=== PATIENT | female | born 1990 | race African-American/Black ===

== ENCOUNTER 2017-02-15 10:18 | Emergency (ER) | payer SELFPAY ==
[2017-02-15 10:23] VITALS: BP 162/97; BMI 31.9
--- NOTE | 2017-02-15 11:00 | DR.GENAD ---
HPI - PCP Primary Care Physician: ingrid - Complaint/Symptoms Chief Complaint Doctors Comments: Patient reports that she has reoccuring frontal headaches for years. Made worse with noise and light better with quiet. Throbbing frontal headach. Admits to headache since a child. She has tried otc medications and headache continues. Family of similar headache, grandmother. Chief Complaint:: patient stated she has had a headache for 3 to 4 days but today its worse. - Source History Provided: Patient - Mode of Arrival Mode of Arrival: Ambulatory - Timing Onset of Chief Complaint: 02/11/17 PMH - PMH Past Medical History: Yes Past Medical History: Migraines, Headaches, Hypertension Past Surgical History: Yes Surgical History: - Family History History of Family Medical Conditions: No Family Medical History: Hypertension - Social History Does patient currently use any type of tobacco product: No Have you used tobacco products in the last 12 months: No Type of Tobacco Use: None Does any household member use tobacco: No Alcohol Use: None Do you use any recreational Drugs:: No Lives With: Family Lives Where: Home - infectious screening In the last 2 months have you had wt loss of >10#?: NO Have you had fever, night sweats or hemotysis?: No Have you traveled outside the country in the last 6 months?: No Isolation: Standard ROS - Review of Systems Constitutional: No Symptoms Reported Eyes: No Symptoms Reported ENTM: No Symptoms Reported Respiratoy: No Symptoms Reported Cardiovascular: No Symptoms Reported Gastrointestinal/Abdominal: No Symptoms Reported Genitourinary: No Symptoms Reported Neurological: No Symptoms Reported Musculoskeletal: No Symptoms Reported Integumentary: No Symptoms Reported Hematologic/Lymphatic: No Symptoms Reported Endocrine: No Symptoms Reported All Other Systems: Reviewed and Negative PE - Vital Signs Vitals: Temperature 98.7 F Pulse Rate 80 Respiratory Rate 16 Blood Pressure [Right Arm] 146/78 Blood Pressure [Left Arm] 103/59 Blood Pressure 162/97 O2 Sat by Pulse Oximetry 100 - General Limitations: No Limitations General Appearance: Alert, In No Apparent Distress - Head Head Exam: Normal Inspection, Atraumatic - Eyes Eye exam: Normal Appearance, PERRL, EOMI - ENT ENT Exam: Normal Exam External Ear Exam: Normal External Inspection TM/Canal Exam: Bilateral Normal Nose Exam: Normal Nose Exam Mouth Exam: Normal Inspection Throat Exam: Normal Inspection - Neck Neck Exam: Normal Inspection - Chest Chest Inspection: Normal Inspection - Respiratory Respiratory Exam: Normal Lung Sounds Bilat Respiratory Exam: Bilateral Clear to Auscultation - Cardiovascular Cardiovascular Exam: Regular Rate - Abdominal Exam Abdominal Exam: Normal Inspection Abdominal Tenderness: negative: RUQ, RLQ, LUQ, LLQ, Epigastrium, Suprapubic, Diffuse, Mild, Moderate, Severe, Other - Extremities Extremities Exam: Normal Inspection, Full ROM - Back Back Exam: Normal Inspection, Full ROM - Neurologic Neurological Exam: Alert, Oriented X3, CN II-XII Intact - Skin Skin Exam: Warm, Dry, Intact MDM - Differential Diagnosis Differential Diagnosis: Tension headache, headache Course - Reevaluation 1st: Improved - Diagnosis Discharge Problem: Migraine headache Qualifiers: Migraine type: without aura Status migrainosus presence: without status migrainosus Intractability: not intractable Qualified Code(s): G43.009 - Migraine without aura, not intractable, without status migrainosus - Discharge Plan Condition: Stable - Follow ups/Referrals Follow ups/Referrals: Clayton ZHANG [Primary Care Provider] - 3 days - Instructions
[2017-02-15] MEDS ORDERED: IMITREX INJ SC ONE ×2 (11:03→11:05)
== END 2017-02-15 11:37 | disposition home or self-care (01) ==
LOC: ER 10:18
DX: G43.009 Migraine without aura, not intractable, without status migrainosus (principal)
CPT/HCPCS: 96372; 99282; J3030

== ENCOUNTER → 2017-02-24 | Outpatient (CLI) | payer SELFPAY ==
[2017-02-15 10:23] VITALS: BP 162/97
== END ==
LOC: LAB 07:57
PROVIDERS: ATTEND Internal Medicine
DX: Z79.01 Long term (current) use of anticoagulants (principal)
CPT/HCPCS: 36415; 85610

== ENCOUNTER 2017-03-02 10:01 | Inpatient (IN) | payer SELFPAY ==
[2017-03-02 10:21] VITALS: BMI 32.9
--- NOTE | 2017-03-02 10:25 | DR.GENAD ---
HPI - PCP Primary Care Physician: ingrid - Complaint/Symptoms Chief Complaint Doctors Comments: Patient with a history of DVT on coumadin; awaken this AM with dyspnea and pain in right thigh. Chief Complaint:: patient stated she woke up this morning short of breath. her right upper thigh is swelling and painfull. patient stated she last summner she had blood clot in her right arm - Source History Provided: Patient - Mode of Arrival Mode of Arrival: Ambulatory - Timing Onset of Chief Complaint: 03/02/17 PMH - PMH Past Medical History: Yes Past Medical History: Migraines, Headaches, Hypertension Past Surgical History: Yes Surgical History: - Family History History of Family Medical Conditions: Yes Family Medical History: Diabetes Mellitus, [place], Hypertension - Social History Does patient currently use any type of tobacco product: Yes Have you used tobacco products in the last 12 months: Yes Type of Tobacco Use: Cigarettes How many years tobacco product used: 8 Does any household member use tobacco: No Alcohol Use: None Do you use any recreational Drugs:: No Lives With: Family Lives Where: Home - infectious screening In the last 2 months have you had wt loss of >10#?: NO Have you had fever, night sweats or hemotysis?: No Have you traveled outside the country in the last 6 months?: No Isolation: Standard ROS - Review of Systems Constitutional: No Symptoms Reported Eyes: No Symptoms Reported ENTM: No Symptoms Reported Respiratoy: No Symptoms Reported Cardiovascular: No Symptoms Reported Gastrointestinal/Abdominal: No Symptoms Reported Genitourinary: No Symptoms Reported Neurological: No Symptoms Reported Musculoskeletal: Other (right thigh) Integumentary: No Symptoms Reported Hematologic/Lymphatic: No Symptoms Reported Endocrine: No Symptoms Reported Psychiatric: No Symptoms Reported All Other Systems: Reviewed and Negative PE - Vital Signs Vitals: Pulse Rate 86 Respiratory Rate 18 Blood Pressure [Right Arm] 146/78 Blood Pressure [Left Arm] 103/59 Blood Pressure 137/87 - Head Head Exam: Normal Inspection - Eyes Eye exam: Normal Appearance, PERRL, EOMI - ENT ENT Exam: Normal Exam External Ear Exam: Normal External Inspection TM/Canal Exam: Bilateral Normal Nose Exam: Normal Nose Exam Mouth Exam: Normal Inspection Throat Exam: Normal Inspection - Neck Neck Exam: Normal Inspection - Chest Chest Inspection: Normal Inspection - Respiratory Respiratory Exam: Normal Lung Sounds Bilat Respiratory Exam: Bilateral Clear to Auscultation - Cardiovascular Cardiovascular Exam: Regular Rate, Normal Rhythm - Abdominal Exam Abdominal Exam: Normal Inspection Abdominal Tenderness: negative: RUQ, RLQ, LUQ, LLQ, Epigastrium, Suprapubic, Diffuse, Mild, Moderate, Severe, Other - Extremities Extremities Exam: Normal Inspection, Tenderness (right inguinal area), Normal Capillary Refill - Back Back Exam: Normal Inspection - Neurologic Neurological Exam: Alert, Oriented X3, CN II-XII Intact - Psychiatric Psychiatric Exam: Normal Affect - Skin Skin Exam: Warm, Dry, Intact Course - Consultation Called: 12:00 (Return call admit: coumadin 10mg bid today then daily, lovenox max dose for weight) ROR - Labs Reviewed Result Diagrams: 03/02/17 11:12 Laboratory: WBC 7.2 X10^3/uL (3.6-10.0) 03/02/17 11:12 RBC 4.95 X10^6/uL (3.5-5.4) 03/02/17 11:12 Hgb 12.4 g/dL (12.0-16.0) 03/02/17 11:12 Hct 37.9 % (36.0-47.0) 03/02/17 11:12 MCV 76.6 fL (80.0-100.0) L 03/02/17 11:12 MCH 25.0 pg (27.0-34.0) L 03/02/17 11:12 MCHC 32.7 g/dL (33.0-35.0) L 03/02/17 11:12 RDW 14.1 % (11.6-16.5) 03/02/17 11:12 Plt Count 239 X10^3/uL (150.0-450.0) 03/02/17 11:12 Plt Count Comment Adequate (ADEQUATE) 03/02/17 11:12 MPV 8.4 fL (7.4-11.0) 03/02/17 11:12 Neut % 83.7 % (42.0-75.0) H 03/02/17 11:12 Lymph % 4.7 % (21.0-51.0) L 03/02/17 11:12 Mclennan % 9.2 % (0.0-13.0) 03/02/17 11:12 Eos % 1.6 % (0.9-2.9) 03/02/17 11:12 Baso % 0.8 % (0.2-1.0) 03/02/17 11:12 Neut # 6.0 x10^3/uL (2.2-4.8) H 03/02/17 11:12 Lymph # 0.3 X10^3/uL (1.3-2.9) L 03/02/17 11:12 Mclennan # 0.7 x10^3/uL (0.3-0.8) 03/02/17 11:12 Eos # 0.1 x10^3/uL (0.0-0.2) 03/02/17 11:12 Baso # 0.1 X10^3/uL (0.0-0.1) 03/02/17 11:12 Absolute Nucleated RBC 0.0 /100WBC 03/02/17 11:12 Plt Morphology Comment Normal (NORMAL) 03/02/17 11:12 RBC Morphology Abnormal (NORMAL) A 03/02/17 11:12 Hypochromasia Slight A 03/02/17 11:12 INR Target Range - 03/02/17 11:12 INR 1.15 (0.8-1.3) 03/02/17 11:12 PTT 27.3 SECONDS (22.9-36.5) 03/02/17 11:12 PTT Comment - 03/02/17 11:12 D-Dimer 686 ng/mL (0-400) H* 03/02/17 11:12 - XRAY XRAY Interpreted by: Radiologist (Bilateral Lower Extremity Do;ppler venous ultrasound: The deep venous system of the right and left lower extremities were evaluated from the level of the common femoral [id number] through the popliteal veins, Bilaterally. There is evidence for bilateral DVTs with a partially occlusive DVT seen within the left superficial femoeal vein which extends down into the left popliteal vein. There is also a right sided DVT seen in the popliteal vein. ) - Diagnosis Discharge Problem: DVT (deep venous thrombosis) Qualifiers: DVT location: lower extremity Affected thrombotic vein of extremity: femoral Laterality: bilateral Chronicity: acute Qualified Code(s): I82.413 - Acute embolism and thrombosis of femoral vein, bilateral - Discharge Plan Condition: Stable - Follow ups/Referrals Follow ups/Referrals: Clayton ZHANG [Primary Care Provider] - 3 days - Instructions
[2017-03-02] MEDS ORDERED: DEMEROL INJ IM ONE (11:18)
[2017-03-02] MEDS ORDERED: DEMEROL INJ ONE (11:19)
[2017-03-02 11:24] LABS: BASOPHILS # (AUTO) 0.1 X10^3/uL (0.0-0.1); BASOPHILS % (AUTO) 0.8 % (0.2-1.0); EOSINOPHILS # (AUTO) 0.1 x10^3/uL (0.0-0.2); EOSINOPHILS % (AUTO) 1.6 % (0.9-2.9); HEMATOCRIT 37.9 % (36.0-47.0); HEMOGLOBIN 12.4 g/dL (12.0-16.0); LYMPHOCYTES # (AUTO) 0.3 X10^3/uL (1.3-2.9); LYMPHOCYTES % (AUTO) 4.7 % (21.0-51.0); MEAN CORPUSCULAR HGB CONC 32.7 g/dL (33.0-35.0); MEAN CORPUSCULAR VOLUME 76.6 fL (80.0-100.0); MEAN PLATELET VOLUME 8.4 fL (7.4-11.0); MONOCYTES # (AUTO) 0.7 x10^3/uL (0.3-0.8); MONOCYTES % (AUTO) 9.2 % (0.0-13.0); NEUTROPHILS % (AUTO) 83.7 % (42.0-75.0); PLATELET COUNT 239 X10^3/uL (150.0-450.0); RED BLOOD COUNT 4.95 X10^6/uL (3.5-5.4); RED CELL DISTRIBUTION WIDTH 14.1 % (11.6-16.5); WHITE BLOOD COUNT 7.2 X10^3/uL (3.6-10.0)
--- NOTE | 2017-03-02 11:41 | VAS ---
HISTORY: Extremity pain, swelling, and edema Study: Bilateral lower extremity Doppler venous ultrasound. Comparison: December 26, 2014. TECHNIQUE: Multiple urias scale and color flow Doppler images of the deep venous system were obtaine d of the right and left lower extremity. FINDINGS: The deep venous system of the right and left lower extremities were evaluated from the level of the common femoral veins through the popliteal veins, bilaterally. There is evidence for bilateral DVTs with a partially occlusive DVT seen within the left superficial femoral vein which extends down int o the left popliteal vein. There is also a right-sided DVT seen in the popliteal vein. IMPRESSION: 1. POSITIVE EXAMINATION for DVT. 2. Bilateral DVTs are appreciated, as above. Reported By:
[2017-03-02 11:52] LABS: PLATELET MORPHOLOGY COMMENT NORMAL (NORMAL)
[2017-03-02 11:53] LABS: HYPOCHROMASIA SLIGHT
[2017-03-02] MEDS ORDERED: COUMADIN TAB 10 MG PO STA (12:33)
[2017-03-02] MEDS: MORPHINE SULFATE INJ 4 MG IVP PRN ×3 (14:40→23:32)
[2017-03-02] MEDS: NS 1000 ML 1,000 ML IV SCH (14:41)
[2017-03-02] MEDS ORDERED: LOVENOX INJ 80 MG SYR SC SCH (21:00)
[2017-03-02] MEDS ORDERED: COUMADIN TAB 10 MG PO SCH (21:00)
[2017-03-02] MEDS: COUMADIN TAB 10 MG PO SCH (21:08)
[2017-03-02] MEDS: LOVENOX INJ 100 MG SYR SC SCH (21:09)
[2017-03-02] MEDS: ZESTRIL TAB 10 MG PO SCH (21:09)
[2017-03-03] MEDS: NS 1000 ML 1,000 ML IV SCH ×2 (03:00→15:44)
[2017-03-03] MEDS ORDERED: TYLENOL 325 MG TAB PO PRN (05:15)
[2017-03-03 05:34] LABS: BASOPHILS % (AUTO) 0.9 % (0.2-1.0); EOSINOPHILS % (AUTO) 0.7 % (0.9-2.9); HEMATOCRIT 37.1 % (36.0-47.0); HEMOGLOBIN 11.9 g/dL (12.0-16.0); LYMPHOCYTES # (AUTO) 0.5 X10^3/uL (1.3-2.9); LYMPHOCYTES % (AUTO) 10.5 % (21.0-51.0); MEAN CORPUSCULAR HEMOGLOBIN 24.8 pg (27.0-34.0); MEAN CORPUSCULAR VOLUME 77.5 fL (80.0-100.0); MONOCYTES # (AUTO) 0.7 x10^3/uL (0.3-0.8); MONOCYTES % (AUTO) 14.9 % (0.0-13.0); NEUTROPHILS # (AUTO) 3.6 x10^3/uL (2.2-4.8); PLATELET COUNT 190 X10^3/uL (150.0-450.0); RED BLOOD COUNT 4.78 X10^6/uL (3.5-5.4); RED CELL DISTRIBUTION WIDTH 13.9 % (11.6-16.5); WHITE BLOOD COUNT 4.9 X10^3/uL (3.6-10.0)
[2017-03-03 05:39] LABS: ALANINE AMINOTRANSFERASE 32 Units/L (12-78); ALBUMIN 2.9 g/dL (3.4-5.0); ALKALINE PHOSPHATASE 61 Units/L (46-116); ASPARTATE AMINO TRANSFERASE 18 Units/L (15-37); BLOOD UREA NITROGEN 4 mg/dL (7-18); CALCIUM 7.9 mg/dL (8.5-10.1); CARBON DIOXIDE 24.1 mmol/L (21-32); CHLORIDE 105 mmol/L (98-107); COR CA(FOR HYPOALB) 8.8 mg/dL (8.5-10.1); CREATININE 0.63 mg/dL (0.55-1.02); GLUCOSE 85 mg/dL (65-99); SODIUM 140 mmol/L (136-145); TOTAL PROTEIN 6.3 g/dL (6.4-8.2); eGFR BLACK RACES > 60 (>60); eGFR NON BLACK RACES > 60 (>60)
[2017-03-03 05:54] LABS: HYPOCHROMASIA SLIGHT; PLATELET MORPHOLOGY COMMENT NORMAL (NORMAL)
--- NOTE | 2017-03-03 06:12 | RAD ---
HISTORY: DVT Study: Chest one view Comparison: CT chest August 10, 2016 Findings: The trachea is midline. The cardiac silhouette is upper limits normal in size.. The lungs are addison r without focal infiltrate or effusion. The bony thorax is unremarkable. IMPRESSION: 1. No acute cardiopulmonary disease. Reported By:
[2017-03-03] MEDS: MORPHINE SULFATE INJ 4 MG IVP PRN ×4 (06:13→19:36)
[2017-03-03] MEDS: LOVENOX INJ 100 MG SYR SC SCH ×2 (09:11→21:40)
[2017-03-03] MEDS: ZESTRIL TAB 10 MG PO SCH ×2 (09:13→22:05)
[2017-03-03 20:59] LABS: CKMB % 0.4 % (<4); CREATINE KINASE 226 Units/L (26-192); CREATINE KINASE MB < 1.0 ng/mL (0-4.0); TROPONIN I < 0.02 ng/mL (0-1.5)
[2017-03-03] MEDS: COUMADIN TAB 10 MG PO SCH (21:35)
[2017-03-03] MEDS: ROBITUSSIN DM PO PRN (22:05)
[2017-03-04] MEDS: MORPHINE SULFATE INJ 4 MG IVP PRN ×3 (00:04→09:41)
[2017-03-04 01:25] LABS: CKMB % 0.4 % (<4); CREATINE KINASE 230 Units/L (26-192); CREATINE KINASE MB < 1.0 ng/mL (0-4.0); TROPONIN I < 0.02 ng/mL (0-1.5)
[2017-03-04] MEDS: ROBITUSSIN DM PO PRN ×2 (02:23→09:45)
[2017-03-04] MEDS: NS 1000 ML 1,000 ML IV SCH ×2 (02:24→04:08)
[2017-03-04 05:58] LABS: CHOL/HDL RATIO 3.6 (0.0-5.0)
[2017-03-04 08:03] LABS: CKMB % 0.4 % (<4); CREATINE KINASE 234 Units/L (26-192); CREATINE KINASE MB < 1.0 ng/mL (0-4.0); TROPONIN I < 0.02 ng/mL (0-1.5)
[2017-03-04] MEDS: LOVENOX INJ 100 MG SYR SC SCH (09:40)
[2017-03-04] MEDS: ZESTRIL TAB 10 MG PO SCH (09:40)
[2017-03-04] MEDS ORDERED: MORPHINE SULFATE INJ 4 MG IVP ONE (10:47)
[2017-03-04] MEDS ORDERED: ZOFRAN INJ 4 MG VIAL IVP PRN (10:52)
[2017-03-04] MEDS ORDERED: NS 100 ML IV 100 ML IV ONE (11:47)
--- NOTE | 2017-03-04 12:37 | CT ---
HISTORY: Severe chest pain, bilateral DVTs Study: CTA chest with IV contrast Comparison: August 10, 2016 Technique: Multiple axial images of the chest were obtained from the thoracic inlet to the upper abd omen during the administration of IV contrast. In addition to multi planer reconstructions, MIP julianna nstructions were performed and reviewed in coronal and sagittal planes. Dose reduction techniques ut ilized automatic exposure control. Findings: The mediastinum does not demonstrate significant pathological lymphadenopathy. There is no pericard ial effusion observed. The thoracic aorta is normal in its contour without evidence for aneurysmal dilatation. The central pulmonary arterial system does not demonstrate central filling defects to s uggest pulmonary emboli. Evaluation of the lung parenchyma reveals bilateral lower lobe pulmonary nodules which are pleural-b ased or near pleural-based . The largest nodule is seen in the left lower lobe measuring about 9 mil limeters in diameter. This appears to be slightly larger than on patient's prior studies. Since ther e is a nodule greater than 8 millimeters, CT followup at 3 to 6 months and then again at 18/24 month s is suggested. No new nodules are seen. The nodules are unchanged in size from the prior study.. The bony thorax is unremarkable in its appearance. The visualized portions of the upper abdomen ar e grossly unremarkable. IMPRESSION: No evidence of pulmonary embolus or thoracic aortic aneurysm. Multiple noncalcified nodules present in both lower lobes. These are near the pleural surfaces. Larg est nodule measures about 9 millimeters. This should be considered for followup as discussed above. No new nodule is seen. Reported By:
[2017-03-04 13:00] VITALS: BP 167/98
== END 2017-03-04 14:20 | disposition short-term general hospital (02) | DRG 301 ==
LOC: ER 10:25 → MED/SURG 13:15
PROVIDERS: ADMIT Internal Medicine; ATTEND Internal Medicine
DX: I82.413 Acute embolism and thrombosis of femoral vein, bilateral (principal); Z79.01 Long term (current) use of anticoagulants; R06.00 Dyspnea, unspecified; R06.02 Shortness of breath; I10 Essential (primary) hypertension; R07.89 Other chest pain
CPT/HCPCS: 36415; 71010; 71275; 80053; 80061; 82550; 82553; 84484; 85025; 85378; 85610; 85730; 87040; 93005; 93010; 93970; 94760; 96365; 96372; 96374; 99284; A4216; A4222; J1650; J2175; J2270; J2405

== ENCOUNTER → 2017-03-09 | Outpatient (CLI) | payer SELFPAY ==
[2017-03-04 13:00] VITALS: BP 167/98
== END ==
LOC: LAB 15:43
PROVIDERS: ATTEND Internal Medicine
DX: I82.413 Acute embolism and thrombosis of femoral vein, bilateral (principal)
CPT/HCPCS: 36415; 85610

== ENCOUNTER 2017-03-11 19:40 | Emergency (ER) | payer SELFPAY ==
--- NOTE | 2017-03-11 19:51 | DR.GENAD ---
HPI - PCP Primary Care Physician: LEATHA - Complaint/Symptoms Chief Complaint:: MIGRAINE, NAUSEA Self Treatment fo Chief Complaint: FIORICET - Nurses notes reviewed Nurses Notes Review: Yes - Source History Provided: Patient - Mode of Arrival Mode of Arrival: Ambulatory - Timing Onset of Chief Complaint: 03/10/17 Came on: Gradually - Duration Duration: Constant How lon Duration: Days - Location Location: right retro eye - Severity Severity: Moderate - Modifying Factors Worsens:: nothing - Associated Signs and Symptoms Associated Signs and Symptoms: nausea - Other History Other History: Hx migraines and DVT PMH - PMH Past Medical History: Yes Past Medical History: Migraines Past Medical History Comment: DVT Past Surgical History: Yes Surgical History: - Family History History of Family Medical Conditions: Yes Family Medical History: [place], Hypertension - Social History Does patient currently use any type of tobacco product: Yes Have you used tobacco products in the last 12 months: Yes Type of Tobacco Use: Cigarettes Does any household member use tobacco: No Alcohol Use: None Do you use any recreational Drugs:: No Lives With: Family Lives Where: Home - infectious screening In the last 2 months have you had wt loss of >10#?: NO Have you had fever, night sweats or hemotysis?: No Have you traveled outside the country in the last 6 months?: No Isolation: Standard ROS - Review of Systems Constitutional: No Symptoms Reported Eyes: No Symptoms Reported ENTM: No Symptoms Reported Respiratoy: No Symptoms Reported Cardiovascular: No Symptoms Reported Gastrointestinal/Abdominal: Nausea Genitourinary: No Symptoms Reported Neurological: Headache Musculoskeletal: No Symptoms Reported Integumentary: No Symptoms Reported Hematologic/Lymphatic: No Symptoms Reported Endocrine: No Symptoms Reported Psychiatric: No Symptoms Reported PE - Vital Signs Vitals: Temperature 98.1 F Pulse Rate 81 Respiratory Rate 16 Blood Pressure [Right Arm] 146/78 Blood Pressure [Left Arm] 167/98 Blood Pressure 146/90 O2 Sat by Pulse Oximetry 100 - General Limitations: No Limitations General Appearance: Alert, In No Apparent Distress - Head Head Exam: Normal Inspection - Eyes Eye exam: Normal Appearance, PERRL, EOMI. negative: Scleral Icterus, Conjunctival Injection - ENT ENT Exam: Normal Exam External Ear Exam: Normal External Inspection Mouth Exam: Normal Inspection Throat Exam: Normal Inspection - Neck Neck Exam: Normal Inspection, Full ROM, Trachea Midline - Chest Chest Inspection: Normal Inspection - Respiratory Respiratory Exam: negative: Accessory Muscle Use, Respiratory Distress - Extremities Extremities Exam: Normal Inspection, Full ROM - Back Back Exam: Normal Inspection - Neurologic Neurological Exam: Alert, Oriented X3, CN II-XII Intact - Psychiatric Psychiatric Exam: Normal Affect - Skin Skin Exam: Intact, Normal Color ROR - XRAY XRAY Interpreted by: Radiologist XRAY Findings: CT HEAD: normal - Diagnosis Discharge Problem: Headache Qualifiers: Headache type: unspecified Headache chronicity pattern: acute headache Intractability: not intractable Qualified Code(s): R51 - Headache - Discharge Plan Condition: Stable Prescriptions: Ondansetron [Zofran Odt] 4 mg PO Q8H PRN #12 tab PRN Reason: Nausea/Vomiting - Follow ups/Referrals Follow ups/Referrals: Clayton ZHANG [Primary Care Provider] - 3 days - Instructions
[2017-03-11 20:00] VITALS: BP 146/90; BMI 31.8
[2017-03-11] MEDS ORDERED: TORADOL 60 MG VIAL IM ONE (20:01)
[2017-03-11] MEDS ORDERED: TORADOL 60 MG VIAL ONE (20:03)
[2017-03-11] MEDS ORDERED: ZOFRAN TAB 4 MG ONE (20:06)
[2017-03-11] MEDS ORDERED: ZOFRAN TAB 4 MG PO ONE (20:06)
--- NOTE | 2017-03-11 20:28 | CT ---
HISTORY: Headache Study: CT brain without contrast Comparison: December 23, 2015 Technique: Multiple axial images of the brain were obtained from the skull base to the vertex without administr ation of IV contrast. Findings: Some of the images are degraded by patient motion, otherwise no definite acute intraparenchymal hemo rrhage or mass can be identified. No extra-axial fluid collections are seen. No alteration in the attenuation of the brain parenchyma can be identified to suggest acute or subacute ischemic change. The ventricular system is symmetric and nondilated. If symptoms are clinical concern persist recom mend short interval followup for further evaluation. IMPRESSION: 1. No acute intracranial process can be identified. Reported By:
== END 2017-03-11 20:42 | disposition home or self-care (01) ==
LOC: ER 19:53
DX: R51 Headache (principal)
CPT/HCPCS: 70450; 96372; 99282; 99283; S0181; J1885

== ENCOUNTER 2017-05-13 01:54 | Emergency (ER) | payer SELFPAY ==
[2017-05-13 02:05] VITALS: BP 146/97; BMI 32.8
[2017-05-13] MEDS ORDERED: FIORICET TAB PO ONE ×4 (02:13→03:00)
--- NOTE | 2017-05-13 02:13 | DR.GENAD ---
HPI - PCP Primary Care Physician: Ruchi - Complaint/Symptoms Chief Complaint Doctors Comments: Patient admits to migraine headache for 2-3 days. Has not taken medication, states that she is out of ipnexus which usually works for her. Chief Complaint:: headache "migraine" and vomiting Self Treatment fo Chief Complaint: ibprofen,aleve, - Source History Provided: Patient - Mode of Arrival Mode of Arrival: Ambulatory - Timing Onset of Chief Complaint: 05/10/17 PMH - PMH Past Medical History: Yes Past Medical History: Migraines Past Surgical History: Yes Surgical History: - Family History History of Family Medical Conditions: Yes Family Medical History: [place], Hypertension - Social History Does patient currently use any type of tobacco product: Yes Have you used tobacco products in the last 12 months: Yes Type of Tobacco Use: Cigarettes Does any household member use tobacco: Yes Alcohol Use: None Do you use any recreational Drugs:: No Lives With: Family Lives Where: Home - infectious screening In the last 2 months have you had wt loss of >10#?: NO Have you had fever, night sweats or hemotysis?: No Have you traveled outside the country in the last 6 months?: No Isolation: Standard ROS - Review of Systems Eyes: No Symptoms Reported ENTM: No Symptoms Reported Respiratoy: No Symptoms Reported Cardiovascular: See HPI Gastrointestinal/Abdominal: No Symptoms Reported Genitourinary: No Symptoms Reported Neurological: No Symptoms Reported Musculoskeletal: No Symptoms Reported Integumentary: No Symptoms Reported Hematologic/Lymphatic: No Symptoms Reported Endocrine: No Symptoms Reported Psychiatric: No Symptoms Reported All Other Systems: Reviewed and Negative PE - Vital Signs Vitals: Temperature 97.9 F Pulse Rate 60 Respiratory Rate 16 Blood Pressure [Right Arm] 146/78 Blood Pressure [Left Arm] 167/98 Blood Pressure 146/97 O2 Sat by Pulse Oximetry 97 - General Limitations: No Limitations General Appearance: Alert, In No Apparent Distress - Head Head Exam: Normal Inspection, Atraumatic - Eyes Eye exam: Normal Appearance, PERRL, EOMI - ENT ENT Exam: Normal Exam External Ear Exam: Normal External Inspection TM/Canal Exam: Bilateral Normal Nose Exam: Normal Nose Exam Mouth Exam: Normal Inspection Throat Exam: Normal Inspection - Neck Neck Exam: Normal Inspection - Chest Chest Inspection: Normal Inspection - Respiratory Respiratory Exam: Normal Lung Sounds Bilat Respiratory Exam: Bilateral Clear to Auscultation - Cardiovascular Cardiovascular Exam: Regular Rate - Abdominal Exam Abdominal Exam: Normal Inspection Abdominal Tenderness: negative: RUQ, RLQ, LUQ, LLQ, Epigastrium, Suprapubic, Diffuse, Mild, Moderate, Severe, Other - Extremities Extremities Exam: Normal Inspection, Full ROM - Back Back Exam: Normal Inspection, Full ROM - Neurologic Neurological Exam: Alert, Oriented X3, CN II-XII Intact - Psychiatric Psychiatric Exam: Normal Affect - Skin Skin Exam: Warm, Dry, Intact - Diagnosis Discharge Problem: Migraine headache Qualifiers: Migraine type: without aura Status migrainosus presence: without status migrainosus Intractability: not intractable Qualified Code(s): G43.009 - Migraine without aura, not intractable, without status migrainosus - Discharge Plan Condition: Stable - Follow ups/Referrals Follow ups/Referrals: Clayton ZHANG [Primary Care Provider] - 3 days - Instructions
[2017-05-13] MEDS ORDERED: ZOFRAN TAB 4 MG PO ONE (02:56)
[2017-05-13] MEDS ORDERED: ZOFRAN TAB 4 MG ONE (02:58)
== END 2017-05-13 03:36 | disposition home or self-care (01) ==
LOC: ER 01:54
DX: G43.009 Migraine without aura, not intractable, without status migrainosus (principal)
CPT/HCPCS: 99282; S0181

== ENCOUNTER 2017-06-27 03:24 | Emergency (ER) | payer SELFPAY ==
[2017-06-27 03:31] VITALS: BP 160/97; BMI 33.5
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
[2017-06-27] MEDS ORDERED: PHENERGAN INJ 25 MG IM ONE (03:59)
[2017-06-27] MEDS ORDERED: DEMEROL INJ IM ONE (03:59)
[2017-06-27] MEDS ORDERED: PHENERGAN INJ 25 MG ONE (04:16)
[2017-06-27] MEDS ORDERED: DEMEROL INJ ONE (04:16)
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
== END 2017-06-27 05:18 | disposition home or self-care (01) ==
LOC: ER 03:24
DX: S20.219A Contusion of unspecified front wall of thorax, initial encounter (principal); T14.8 Other injury of unspecified body region; G43.009 Migraine without aura, not intractable, without status migrainosus; S00.93XA Contusion of unspecified part of head, initial encounter; S50.12XA Contusion of left forearm, initial encounter; S56.811A Strain of other muscles, fascia and tendons at forearm level, right arm, initial encounter; R51 Headache; X58.XXXA Exposure to other specified factors, initial encounter; Y92.9 Unspecified place or not applicable
CPT/HCPCS: 70450; 70486; 71111; 73090; 96372; 99282; 99283; J2175; J2550

== ENCOUNTER 2017-08-25 22:08 | Emergency (ER) | payer SELFPAY ==
[2017-08-25 22:15] VITALS: BMI 32.1
--- NOTE | 2017-08-25 23:28 | DR.GENAD ---
HPI - PCP Primary Care Physician: LEATHA - Complaint/Symptoms Chief Complaint Doctors Comments: Patient admits to a migraine headache, had no medication nor money for refill on fioricet. Chief Complaint:: ANDERSON AND NV ONSET LAST WEDNESDAY Self Treatment fo Chief Complaint: MOTRIN BC POWDERS , RESTING - Source History Provided: Patient - Mode of Arrival Mode of Arrival: Ambulatory - Timing Onset of Chief Complaint: 08/21/17 PMH - PMH Past Medical History: Yes Past Medical History: Migraines Past Surgical History: Yes Surgical History: - Family History History of Family Medical Conditions: Yes Family Medical History: [place], Hypertension - Social History Does patient currently use any type of tobacco product: Yes Have you used tobacco products in the last 12 months: Yes Type of Tobacco Use: Cigarettes Does any household member use tobacco: No Alcohol Use: None Do you use any recreational Drugs:: No Lives With: Family Lives Where: Home - infectious screening In the last 2 months have you had wt loss of >10#?: NO Have you had fever, night sweats or hemotysis?: No Have you traveled outside the country in the last 6 months?: No Isolation: Standard ROS - Review of Systems Eyes: No Symptoms Reported ENTM: No Symptoms Reported Respiratoy: No Symptoms Reported Cardiovascular: No Symptoms Reported Gastrointestinal/Abdominal: No Symptoms Reported Genitourinary: No Symptoms Reported Neurological: No Symptoms Reported Musculoskeletal: No Symptoms Reported Integumentary: No Symptoms Reported Hematologic/Lymphatic: No Symptoms Reported Endocrine: No Symptoms Reported Psychiatric: No Symptoms Reported All Other Systems: Reviewed and Negative PE - Vital Signs Vitals: Temperature 98.4 F Pulse Rate 60 Respiratory Rate 16 Blood Pressure [Right Arm] 146/78 Blood Pressure [Left Arm] 167/98 Blood Pressure 168/101 O2 Sat by Pulse Oximetry 100 - General Limitations: No Limitations General Appearance: Alert, In No Apparent Distress - Head Head Exam: Normal Inspection, Atraumatic - Eyes Eye exam: Normal Appearance, PERRL, EOMI - ENT ENT Exam: Normal Exam External Ear Exam: Normal External Inspection TM/Canal Exam: Bilateral Normal Nose Exam: Normal Nose Exam Mouth Exam: Normal Inspection Throat Exam: Normal Inspection - Neck Neck Exam: Normal Inspection, Full ROM - Chest Chest Inspection: Normal Inspection - Respiratory Respiratory Exam: Normal Lung Sounds Bilat Respiratory Exam: Bilateral Clear to Auscultation - Cardiovascular Cardiovascular Exam: Regular Rate, Normal Rhythm - Abdominal Exam Abdominal Exam: Normal Inspection, Normal Bowel Sounds Abdominal Tenderness: negative: RUQ, RLQ, LUQ, LLQ, Epigastrium, Suprapubic, Diffuse, Mild, Moderate, Severe, Other - Extremities Extremities Exam: Normal Inspection, Full ROM - Back Back Exam: Normal Inspection, Full ROM - Neurologic Neurological Exam: Alert, Oriented X3, CN II-XII Intact - Psychiatric Psychiatric Exam: Normal Affect - Skin Skin Exam: Warm, Dry, Intact Course - Reevaluation 1st: Improved - Diagnosis Discharge Problem: Migraine headache Qualifiers: Migraine type: without aura Status migrainosus presence: without status migrainosus Intractability: intractable Qualified Code(s): G43.019 - Migraine without aura, intractable, without status migrainosus - Discharge Plan Condition: Stable - Follow ups/Referrals Follow ups/Referrals: Clayton ZHANG [Primary Care Provider] - 3 days - Instructions
[2017-08-25] MEDS ORDERED: ZOFRAN SYRUP 4 MG UDC PO ONE (23:30)
[2017-08-25] MEDS ORDERED: ZOFRAN SYRUP 4 MG UDC ONE (23:38)
[2017-08-25] MEDS ORDERED: FIORICET TAB PO ONE ×2 (23:40→23:41)
[2017-08-25] MEDS: FIORICET #3 W/CODEINE CAP PO STA (23:43)
[2017-08-26] MEDS ORDERED: PHENERGAN INJ 25 MG IM ONE
[2017-08-26] MEDS ORDERED: PHENERGAN INJ 25 MG ONE (00:36)
[2017-08-26] MEDS: FIORICET #3 W/CODEINE CAP PO STA (00:40)
[2017-08-26] MEDS ORDERED: FIORICET TAB PO ONE ×2 (00:55→00:57)
[2017-08-26 01:55] VITALS: BP 140/79
== END 2017-08-26 01:52 | disposition home or self-care (01) ==
LOC: ER 22:24
DX: G43.019 Migraine without aura, intractable, without status migrainosus (principal)
CPT/HCPCS: 96372; 99282; J2550; Q0162

== ENCOUNTER 2017-09-28 14:38 | Emergency (ER) | payer SELFPAY ==
[2017-09-28 15:00] VITALS: BP 141/96; BMI 32.1
[2017-09-28] MEDS ORDERED: NORCO 5/325 MG TAB PO ONE (15:35)
--- NOTE | 2017-09-28 15:40 | DR.EXTPAIN ---
HPI - Time seen Time seen: 15:28 - PCP Primary Care Physician: DR. ZHANG - HPI Comment HPI Comment: Rt. leg pain. She was seen here 2 days ago for same complain. She has a hx. of DVT lower exts. and is on Coumadin. Her INR was sub-therapeutic. She had an elevated d-dimer but her lower extremity venous doppler was negative for venous occlussion. Her coumadin dosage was adjusted upwards. - Complaint/Symptoms Chief Complaint:: PT C/O LEFT LEG PAIN THAT GOES UP TO HER THIGH ,,,, ON WEDNESDAY PT WAS SEEN IN THE ER AND PT LABS WERE DONE AND HER COAGS WERE ELEVATED BUT NO CLOT WAS SEEN . PT COUMADIN WAS INCREASED 7.5 MG .. PT'S PAIN TO GOING TO HER THIGH AND GROIN,,,,,, Self Treatment fo Chief Complaint: PT C/O WARMTH TO THE TOUCH. - Nurses notes reviewed Nurses Notes Review: Yes - Source History Provided: Patient - Mode of arrival Mode of Arrival: Ambulatory - Timing Onset of Chief Complaint: 09/25/17 PMH - PMH Past Medical History: Yes Past Medical History: Migraines, Hypertension Past Medical History Comment: DVT to lower exts. Past Surgical History: Yes Surgical History: - Family History History of Family Medical Conditions: Yes Family Medical History: [place], Hypertension - Social History Does patient currently use any type of tobacco product: Yes Have you used tobacco products in the last 12 months: Yes Type of Tobacco Use: Cigarettes How many years tobacco product used: 10 Does any household member use tobacco: No Alcohol Use: None Do you use any recreational Drugs:: No Lives With: Family Lives Where: Home - infectious screening In the last 2 months have you had wt loss of >10#?: NO Have you had fever, night sweats or hemotysis?: No Have you traveled outside the country in the last 6 months?: No Isolation: Standard ROS - Review of Systems Constitutional: No Symptoms Reported Eyes: No Symptoms Reported ENTM: No Symptoms Reported Respiratoy: No Symptoms Reported Cardiovascular: No Symptoms Reported Gastrointestinal/Abdominal: No Symptoms Reported Genitourinary: No Symptoms Reported Neurological: No Symptoms Reported Musculoskeletal: Leg (pain) Integumentary: No Symptoms Reported Hematologic/Lymphatic: No Symptoms Reported Endocrine: No Symptoms Reported Psychiatric: No Symptoms Reported All Other Systems: Reviewed and Negative PE - Vital Signs Vitals: Temperature 98.7 F Pulse Rate 85 Respiratory Rate 22 Blood Pressure [Right Arm] 146/78 Blood Pressure [Left Arm] 140/79 Blood Pressure 141/96 O2 Sat by Pulse Oximetry 99 - General Limitations: No Limitations General Appearance: Alert, In No Apparent Distress - Head Head Exam: Normal Inspection - Eyes Eye exam: Normal Appearance - ENT ENT Exam: Normal Exam - Neck Neck Exam: Normal Inspection - Chest Chest Inspection: Normal Inspection - Respiratory Respiratory Exam: Normal Lung Sounds Bilat - Cardiovascular Cardiovascular Exam: Regular Rate, Normal Rhythm - Abdominal Exam Abdominal Exam: Normal Inspection, Normal Bowel Sounds, Soft - Extremities Extremities Exam: Normal Inspection - Lower Extremities Hip/Pelvis Exam: Normal Inspection, Tenderness (over medial left thigh ). negative: Full ROM, Swelling, Abrasion, Laceration, Ecchymosis, Deformity, Crepitus, Dislocation, Erythema, External Rotation, Internal Rotation, Shortening, Pelvis Stable, Other Upper Leg Exam: Normal Inspection, Tenderness (medial left leg). negative: Swelling, Abrasion, Laceration, Ecchymosis, Deformity, Crepitus, Dislocation, Erythema, Other Gait Exam: Observed & Limited by Pain - Back Back Exam: Normal Inspection - Neurological Neurological Exam: Alert, Oriented X3, CN II-XII Intact - Psychiatric Psychiatric Exam: Normal Affect - Skin Skin Exam: Warm, Dry, Intact, Normal Color Course - Education/Counseling Education/Counseling: Patient Educated On: Treatment, Diagnosis, Needs for Follow Up (see PCP tomorrow (appt. confirmed by E.Jasiel. nurse).) ROR - Labs Reviewed Laboratory Results Reviewed?: Yes Laboratory: INR Target Range - 09/28/17 15:41 INR 1.27 (0.8-1.3) 09/28/17 15:41 - Other Results Comments: INR: 1.27 - Diagnosis Discharge Problem: Leg pain, Leg pain, left - Discharge Plan Disposition: 01 HOME, SELF-CARE Condition: Stable - Follow ups/Referrals Follow ups/Referrals: NFD,None [Primary Care Provider] - 3 days - Instructions
[2017-09-28] MEDS ORDERED: NORCO 5/325 MG TAB ONE (15:58)
== END 2017-09-28 16:56 | disposition home or self-care (01) ==
LOC: ER 15:05
DX: M79.605 Pain in left leg (principal)
CPT/HCPCS: 36415; 85610; 99282

== ENCOUNTER 2017-12-17 15:59 | Emergency (ER) | payer SELFPAY ==
[2017-12-17 16:17] VITALS: BMI 32.5
[2017-12-17] MEDS ORDERED: NS 1000 ML 1,000 ML IV ONE (16:22)
[2017-12-17] MEDS ORDERED: TORADOL 30 MG VIAL IVP ONE (16:22)
[2017-12-17] MEDS ORDERED: ZOFRAN INJ 4 MG VIAL IVP ONE (16:23)
[2017-12-17] MEDS ORDERED: ZOFRAN INJ 4 MG VIAL ONE (16:24)
[2017-12-17] MEDS ORDERED: BENADRYL INJ 50 MG VIAL IVP ONE (16:24)
[2017-12-17] MEDS ORDERED: NS 1000 ML 1,000 ML ONE ×2 (16:24→16:25)
[2017-12-17] MEDS ORDERED: TORADOL 30 MG VIAL ONE (16:25)
--- NOTE | 2017-12-17 16:45 | DR.HEADACH ---
HPI - Time Seen Time seen: 04:00 (seen on arrival) - Primary Care Physician Primary Care Physician: LEATHA GARCIA - HPI Comment HPI Comment: Pt with migraine x 4 days, now with NV also, typical of her migraines. No hx recent head trauma, pt with long hx episodic migraine type headaches - Complaint/Symptoms Chief Complaint:: PT TO ER WITH C/O N/V FOR THE PAST 3 HOURS ... PT IS VOMITING IN TRIAGE PT AMBULATORY TO ROOM 4.. Pertinent History: Headache, Nausea/Vomitting. denies: Head Injury Self Treatment fo Chief Complaint: PT C/O ANDERSON AND C/O HAVING HX MIGRAINES AND THAT HIS FEEL LIKE IT NORMALLY DOES ,, - Source History Provided: Patient - Mode of Arrival Mode of Arrival: Ambulatory - Timing Onset of Chief Complaint: 12/17/17 - Duration Since Onset: Since Onset How lon (NV x 3 hrs, ANDERSON x 4 days) Duration: Hours - Location Headache Location: Generalized - Quality Quality: Throbbing, Aching - Severity Headache Severity: Moderate, Like Previous Headaches - Context Headache Onset Circumstances: Spontaneous - Modifying Factors Improves With: Nothing Worsens: Nothing, Light - Associated Signs and Symptoms Associated Symptoms: Nausea, Vomitting, Photophobia PMH - PMH Past Medical History: Yes Past Medical History: Migraines, Hypertension Past Surgical History: No Surgical History: - Family History History of Family Medical Conditions: Yes Family Medical History: [place], Hypertension - Social History Does patient currently use any type of tobacco product: No Have you used tobacco products in the last 12 months: No Type of Tobacco Use: None Does any household member use tobacco: No Alcohol Use: None Do you use any recreational Drugs:: No Lives With: Family Lives Where: Home - infectious screening In the last 2 months have you had wt loss of >10#?: NO Have you had fever, night sweats or hemotysis?: No Have you traveled outside the country in the last 6 months?: No Isolation: Standard ROS - Review of Systems Constitutional: Malaise, Loss of Appetite Eyes: Photophobia ENTM: No Symptoms Reported Respiratoy: No Symptoms Reported Cardiovascular: No Symptoms Reported Gastrointestinal/Abdominal: Nausea, Vomiting Genitourinary: No Symptoms Reported Neurological: Headache Musculoskeletal: No Symptoms Reported Integumentary: No Symptoms Reported Hematologic/Lymphatic: No Symptoms Reported Endocrine: No Symptoms Reported Psychiatric: No Symptoms Reported All Other Systems: Reviewed and Negative PE - Vital Signs Vitals: Temperature 98.2 F Pulse Rate 75 Respiratory Rate 18 Blood Pressure [Right Arm] 146/78 Blood Pressure [Left Arm] 140/79 Blood Pressure 186/113 O2 Sat by Pulse Oximetry 98 - General Limitations: No Limitations General Appearance: Alert, Other (ill appearing but NAD) - Head Head Exam: Normal Inspection, Atraumatic, Normocephalic - Eyes Eye exam: Normal Appearance, PERRL, EOMI. negative: Nystagmus, Periorbital Swelling, Periorbital Tenderness Eyelids: Normal Inspection: Bilateral Pupils: Regular, Round: Bilateral Sclera/Conjunctival: Normal Inspection: Bilateral - ENT ENT Exam: Normal Exam External Ear Exam: Normal External Inspection Throat Exam: Normal Inspection - Neck Neck Exam: Normal Inspection, Full ROM, Trachea Midline. negative: Tenderness, Meningismus, Lymphadenopathy - Chest Chest Inspection: Normal Inspection - Respiratory Respiratory Exam: Normal Lung Sounds Bilat - Cardiovascular Cardiovascular Exam: Regular Rate, Normal Rhythm, Normal Heart Sounds - Abdominal Exam Abdominal Exam: Normal Inspection, Normal Bowel Sounds, Soft. negative: Tenderness - Extremities Extremities Exam: Normal Inspection, Full ROM, Tenderness, Other (normal gait ) - Neurologic Neurological Exam: Alert, Oriented X3, Normal Gait - Psychiatric Psychiatric Exam: Normal Affect, Normal Mood - Skin Skin Exam: Warm, Dry, Intact - Diagnosis Discharge Problem: Migraine headache - Discharge Plan Disposition: 01 HOME, SELF-CARE Condition: Stable - Follow ups/Referrals Follow ups/Referrals: Clayton ZHANG [Primary Care Provider] - 3 days - Instructions Additional Notes - Additional Notes Additional Notes: Feels back to normal after meds, ANDERSON gone, NV controlled. Pt states she's ready for d/c
[2017-12-17] MEDS ORDERED: BENADRYL INJ 50 MG VIAL ONE (18:11)
[2017-12-17 18:38] VITALS: BP 153/85
== END 2017-12-17 18:39 | disposition home or self-care (01) ==
LOC: ER 16:25
DX: G43.909 Migraine, unspecified, not intractable, without status migrainosus (principal)
CPT/HCPCS: 96365; 96374; 96375; 99282; 99283; A4222; J1200; J1885; J2405

== ENCOUNTER 2017-12-19 11:13 | Emergency (ER) | payer SELFPAY ==
--- NOTE | 2017-12-19 11:17 | DR.GENAD ---
HPI - HPI Comment HPI Comment: MIGRAINE HEADACHE PAST 6 DAYS. WORSE TODAY. HOME MEDS DID NOT HELP. - Complaint/Symptoms Chief Complaint Doctors Comments: HEADACHE WITH N/V AND PHOTOPHOBIA FOR FEW DAYS. - Nurses notes reviewed Nurses Notes Review: Yes - Source History Provided: Patient - Mode of Arrival Mode of Arrival: Ambulatory - Timing Came on: Suddenly - Duration Duration: Constant Duration: Days - Severity Severity: Moderate PMH - PMH Past Medical History: Migraines, Hypertension Past Surgical History: No Surgical History: - Family History Family Medical History: [place], Hypertension - Social History Do you use any recreational Drugs:: No ROS - Review of Systems Constitutional: No Symptoms Reported Eyes: Photophobia ENTM: No Symptoms Reported Respiratoy: No Symptoms Reported Cardiovascular: No Symptoms Reported Gastrointestinal/Abdominal: Nausea, Vomiting Genitourinary: No Symptoms Reported Neurological: Headache Musculoskeletal: No Symptoms Reported Integumentary: No Symptoms Reported Hematologic/Lymphatic: No Symptoms Reported Endocrine: No Symptoms Reported All Other Systems: Reviewed and Negative PE - Vital Signs Vitals: Temperature 99.1 F Pulse Rate 65 Respiratory Rate 18 Blood Pressure [Right Arm] 146/78 Blood Pressure [Left Arm] 153/85 Blood Pressure 159/76 O2 Sat by Pulse Oximetry 98 - General Limitations: No Limitations General Appearance: Alert - Head Head Exam: Normal Inspection - Eyes Eye exam: Normal Appearance - ENT ENT Exam: Normal External Ear Exam External Ear Exam: Normal External Inspection TM/Canal Exam: Bilateral Normal Nose Exam: Normal Nose Exam Mouth Exam: Normal Inspection Throat Exam: Normal Inspection - Neck Neck Exam: Normal Inspection - Chest Chest Inspection: Symmetric Chest Wall Rise - Respiratory Respiratory Exam: Normal Lung Sounds Bilat Respiratory Exam: Bilateral Clear to Auscultation - Cardiovascular Cardiovascular Exam: Regular Rate, Normal Rhythm, Normal Heart Sounds - Abdominal Exam Abdominal Exam: Normal Bowel Sounds, Soft. negative: Tenderness - Extremities Extremities Exam: Normal Inspection - Back Back Exam: Normal Inspection - Neurologic Neurological Exam: Alert, Oriented X3 - Psychiatric Psychiatric Exam: Anxious - Skin Skin Exam: Normal Color MDM - Differential Diagnosis Differential Diagnosis: MIGRAINE HEADACHE Course - Treatment Treatment: SEE ORDERS. - Education/Counseling Education/Counseling: Patient, Education Educated On: Diagnosis, Needs for Follow Up ROR - Labs Reviewed Laboratory: Influenza Type A (PCR) Negative (NEGATIVE) 12/19/17 11:48 Influenza Type B (PCR) Negative (NEGATIVE) 12/19/17 11:48 - Diagnosis Discharge Problem: Migraine headache Qualifiers: Migraine type: unspecified Status migrainosus presence: without status migrainosus Intractability: intractable Qualified Code(s): G43.919 - Migraine, unspecified, intractable, without status migrainosus - Discharge Plan Disposition: 01 HOME, SELF-CARE Condition: Stable Prescriptions: [id number] [Fioricet #3 W/Codeine Cap] 1 cap PO Q8H PRN #30 cap PRN Reason: Migraine Headache Ibuprofen [MOTRIN TAB 800 MG *] 800 mg PO Q8H PRN #30 tab PRN Reason: Pain/Inflammation Promethazine HCl [PHENERGAN TAB 25 MG *] 25 mg PO Q8H PRN #20 tab PRN Reason: Nausea/Vomiting - Follow ups/Referrals Follow ups/Referrals: Clayton ZAHNG [Primary Care Provider] - 3 days - Instructions Instructions: Migraine Headache, [id number] Additional Instructions: RETURN TO ED IF WORSE.
[2017-12-19 11:24] VITALS: BP 159/76; BMI 33.5
[2017-12-19] MEDS ORDERED: PHENERGAN INJ 25 MG IM ONE (11:29)
[2017-12-19] MEDS ORDERED: DEMEROL INJ IM ONE (11:29)
[2017-12-19] MEDS ORDERED: DEMEROL INJ ONE (11:31)
[2017-12-19] MEDS ORDERED: PHENERGAN INJ 25 MG ONE (11:31)
== END 2017-12-19 12:41 | disposition home or self-care (01) ==
LOC: ER 11:13
DX: G43.919 Migraine, unspecified, intractable, without status migrainosus (principal)
CPT/HCPCS: 87502; 96372; 99282; J2175; J2550

== ENCOUNTER 2018-01-06 17:50 | Emergency (ER) | payer SELFPAY ==
[2018-01-06 17:52] VITALS: BP 182/106; BMI 34.0
--- NOTE | 2018-01-06 19:04 | DR.EXTPAIN ---
HPI - Time seen Time seen: 19:00 - PCP Primary Care Physician: LEATHA - Complaint/Symptoms Chief Complaint Doctor Comments: History as stated. Patient is being treated for previous blood clot of the left upper extremity. She reports that she injured the left shoulder and the entire upper extremity has been hurting. Chief Complaint:: PT. C/O LEFT ARM PAIN. PT. STATES SHE HIT HER LEFT SHOULDER 2 DAYS AGO ON A FREEZER. PT. HAS A HX. OF DVT TO ARM. PT. HAS BEEN UNABLE TO TAKE COUMADIN PRESCRIBED OR AFFORD TO GET HER INR CHECKED. - Source History Provided: Patient - Mode of arrival Mode of Arrival: Ambulatory - Timing Onset of Chief Complaint: 01/06/18 PMH - PMH Past Medical History: Yes Past Medical History: Migraines, Hypertension Past Medical History Comment: DVT Past Surgical History: Yes Surgical History: - Family History History of Family Medical Conditions: Yes Family Medical History: [place], Hypertension - Social History Does patient currently use any type of tobacco product: Yes Have you used tobacco products in the last 12 months: Yes Type of Tobacco Use: Cigarettes Does any household member use tobacco: Yes Alcohol Use: None Do you use any recreational Drugs:: No Lives With: Family Lives Where: Home - infectious screening In the last 2 months have you had wt loss of >10#?: NO Have you had fever, night sweats or hemotysis?: No Have you traveled outside the country in the last 6 months?: No Isolation: Standard ROS - Review of Systems Eyes: No Symptoms Reported ENTM: No Symptoms Reported Respiratoy: No Symptoms Reported Cardiovascular: No Symptoms Reported Gastrointestinal/Abdominal: No Symptoms Reported Genitourinary: No Symptoms Reported Neurological: No Symptoms Reported Musculoskeletal: Shoulder (left shoulder and upper extremity pain) Integumentary: No Symptoms Reported Hematologic/Lymphatic: No Symptoms Reported Endocrine: No Symptoms Reported Psychiatric: No Symptoms Reported All Other Systems: Reviewed and Negative PE - Vital Signs Vitals: Temperature 97.5 F Pulse Rate 87 Respiratory Rate 18 Blood Pressure [Right Arm] 146/78 Blood Pressure [Left Arm] 153/85 Blood Pressure 182/106 O2 Sat by Pulse Oximetry 100 - General Limitations: No Limitations General Appearance: Alert - Head Head Exam: Normal Inspection, Atraumatic - Eyes Eye exam: Normal Appearance, PERRL, EOMI - ENT ENT Exam: Normal Exam, Normal Oropharynx - Neck Neck Exam: Normal Inspection, Full ROM - Chest Chest Inspection: Normal Inspection, Symmetric Chest Wall Rise - Respiratory Respiratory Exam: Normal Lung Sounds Bilat Respiratory Exam: Bilateral Clear to Auscultation - Cardiovascular Cardiovascular Exam: Regular Rate, Normal Rhythm - Abdominal Exam Abdominal Exam: Normal Inspection Abdominal Tenderness: negative: RUQ, RLQ, LUQ, LLQ, Epigastrium, Suprapubic, Diffuse, Mild, Moderate, Severe, Other - Extremities Extremities Exam: Normal Inspection, Full ROM - Upper Extremities Shoulder Exam: Normal Inspection, Full ROM Arm Exam: Normal Inspection, Full ROM Elbow Exam: Normal Inspection Forearm Exam: Normal Inspection, Full ROM Hand Exam: Normal Inspection Neuromotor Exam: Normal Exam Neurosensory Exam: Normal Exam Hand Tendon Exam: Flexor Digitorium Profundus (Location) Upper Ext. Vascular Exam: Capillary Refill, Radial Pulse - Lower Extremities Hip/Pelvis Exam: Normal Inspection Upper Leg Exam: Normal Inspection Knee Exam: Normal Inspection Lower Leg Exam: Normal Inspection Ankle Exam: Normal Inspection Foot/Toe Exam: Normal Inspection Neurovascular/Tendon Exam: Normal Capillary Refill - Back Back Exam: Normal Inspection - Neurological Neurological Exam: Alert, Oriented X3, CN II-XII Intact - Psychiatric Psychiatric Exam: Normal Affect - Skin Skin Exam: Warm, Dry, Intact Course - Reevaluation 1st: Unchanged ROR - Labs Reviewed Laboratory: INR Target Range - 01/06/18 19:00 INR 1.07 (0.8-1.3) 01/06/18 19:00 PTT 26.9 SECONDS (22.9-36.5) 01/06/18 19:00 PTT Comment - 01/06/18 19:00 D-Dimer 716 ng/mL (0-400) H* 01/06/18 19:00 - XRAY XRAY Interpreted by: Radiologist (Venous Doppler: No DVT seen within the on arm or neck) - Diagnosis Discharge Problem: negative DVT Left shoulder pain Qualifiers: Chronicity: acute Qualified Code(s): M25.512 - Pain in left shoulder - Discharge Plan Condition: Stable - Follow ups/Referrals Follow ups/Referrals: Clayton ZHANG [Primary Care Provider] - 3 days - Instructions
[2018-01-06] MEDS ORDERED: TYLENOL #3 TAB (W/CODEINE) PO ONE ×2 (20:07→20:12)
[2018-01-06] MEDS ORDERED: ZOFRAN TAB 4 MG PO ONE (20:07)
[2018-01-06] MEDS ORDERED: ZOFRAN TAB 4 MG ONE (20:12)
--- NOTE | 2018-01-06 21:28 | VAS ---
Left upper extremity venous Doppler Indication: Left arm pain Technique: Grayscale with color spectral Doppler imaging of the left upper for extremity was performe d. Findings: The jugular and subclavian veins show normal color without thrombus. The axillary, brachial veins demonstrate augmentation with compression and normal color flow. Conclusion: No DVT seen within the on arm or neck. Reported By:
== END 2018-01-06 22:18 | disposition home or self-care (01) ==
LOC: ER 17:57
DX: M25.512 Pain in left shoulder (principal)
CPT/HCPCS: 36415; 85378; 85610; 85730; 93971; 99283; S0181

== ENCOUNTER 2018-02-28 17:58 | Emergency (ER) | payer SELFPAY ==
[2018-02-28 18:07] VITALS: BMI 32.8
[2018-02-28] MEDS ORDERED: BENADRYL INJ 50 MG VIAL IVP ONE (18:52)
[2018-02-28] MEDS ORDERED: COMPAZINE INJ IVP ONE (18:52)
--- NOTE | 2018-02-28 18:53 | DR.GENAD ---
HPI - PCP Primary Care Physician: Dr. Zhang - Complaint/Symptoms Chief Complaint Doctors Comments: Patient with a history of migraines is followed by local physician. Headache started this AM will not go away with otc medication. Chief Complaint:: Pt states she has had a constant migraine with pain over right eye for two days made worse by light and sound associated with nausea and vomitting Self Treatment fo Chief Complaint: ibuprofen and bc powder - Source History Provided: Patient - Mode of Arrival Mode of Arrival: Ambulatory - Timing Onset of Chief Complaint: 02/26/18 PMH - PMH Past Medical History: Yes Past Medical History: Migraines, Headaches, Hypertension Past Medical History Comment: blood clotting disorder, DVT in lower extremities and arms Past Surgical History: Yes Surgical History: - Family History History of Family Medical Conditions: Yes Family Medical History: Diabetes Mellitus, [place], Hypertension Family Medical History Comment: lupus - Social History Does patient currently use any type of tobacco product: Yes Have you used tobacco products in the last 12 months: Yes Type of Tobacco Use: Cigarettes How many years tobacco product used: 8 Does any household member use tobacco: No Alcohol Use: None Do you use any recreational Drugs:: No Lives With: Alone Lives Where: Home - infectious screening In the last 2 months have you had wt loss of >10#?: NO Have you had fever, night sweats or hemotysis?: No Have you traveled outside the country in the last 6 months?: No Isolation: Standard ROS - Review of Systems Eyes: No Symptoms Reported ENTM: No Symptoms Reported Respiratoy: No Symptoms Reported Cardiovascular: No Symptoms Reported Gastrointestinal/Abdominal: No Symptoms Reported Genitourinary: No Symptoms Reported Neurological: No Symptoms Reported Musculoskeletal: No Symptoms Reported Integumentary: No Symptoms Reported Hematologic/Lymphatic: No Symptoms Reported Endocrine: No Symptoms Reported Psychiatric: No Symptoms Reported All Other Systems: Reviewed and Negative PE - Vital Signs Vitals: Temperature 97.9 F Pulse Rate 68 Respiratory Rate 20 Blood Pressure [Right Arm] 146/78 Blood Pressure [Left Arm] 153/85 Blood Pressure 183/115 O2 Sat by Pulse Oximetry 99 - General General Appearance: In No Apparent Distress - Head Head Exam: Normal Inspection, Atraumatic - Eyes Eye exam: Normal Appearance, PERRL, EOMI - ENT ENT Exam: Normal Exam External Ear Exam: Normal External Inspection TM/Canal Exam: Bilateral Normal Nose Exam: Normal Nose Exam Mouth Exam: Normal Inspection Throat Exam: Normal Inspection, Tonsillar Erythema - Neck Neck Exam: Normal Inspection, Full ROM - Chest Chest Inspection: Normal Inspection - Respiratory Respiratory Exam: Normal Lung Sounds Bilat Respiratory Exam: Bilateral Clear to Auscultation - Cardiovascular Cardiovascular Exam: Regular Rate, Normal Rhythm - Abdominal Exam Abdominal Exam: Normal Inspection, Normal Bowel Sounds Abdominal Tenderness: negative: RUQ, RLQ, LUQ, LLQ, Epigastrium, Suprapubic, Diffuse, Mild, Moderate, Severe, Other - Extremities Extremities Exam: Normal Inspection, Full ROM - Back Back Exam: Normal Inspection - Neurologic Neurological Exam: Alert, Oriented X3, CN II-XII Intact - Psychiatric Psychiatric Exam: Normal Affect, Normal Mood - Skin Skin Exam: Warm, Dry, Intact Course - Reevaluation 1st: Improved - Diagnosis Discharge Problem: Migraine Qualifiers: Migraine type: without aura Status migrainosus presence: without status migrainosus Intractability: not intractable Qualified Code(s): G43.009 - Migraine without aura, not intractable, without status migrainosus - Discharge Plan Condition: Stable - Follow ups/Referrals Follow ups/Referrals: Clayton ZHANG [Primary Care Provider] - 3 days - Instructions
[2018-02-28] MEDS ORDERED: COMPAZINE INJ ONE (19:26)
[2018-02-28] MEDS ORDERED: BENADRYL INJ 50 MG VIAL ONE (19:26)
[2018-02-28 20:22] VITALS: BP 169/86
== END 2018-02-28 20:22 | disposition home or self-care (01) ==
LOC: ER 18:08
DX: G43.009 Migraine without aura, not intractable, without status migrainosus (principal)
CPT/HCPCS: 96365; 96374; 96375; 99282; 99283; A4222; J0780; J1200

== ENCOUNTER 2018-03-04 01:36 | Emergency (ER) | payer SELFPAY ==
[2018-03-04 01:51] VITALS: BMI 32.5
[2018-03-04] MEDS ORDERED: DUONEB 0.5 MG/3 MG NEB ONE (02:11)
--- NOTE | 2018-03-04 02:15 | DR.GENAD ---
HPI - PCP Primary Care Physician: LEATHA - Complaint/Symptoms Chief Complaint Doctors Comments: Some tightness in the chest x 1 week. Dysnea/ orthopnea. There is no palpitations or N/V Chief Complaint:: DIFFICULTY SLEEPING, CHESTWALL TENDERNESS X 1 WEEK SEEMS TO BE GETTING WORSE Self Treatment fo Chief Complaint: TYLENOL 3 - Nurses notes reviewed Nurses Notes Review: Yes - Source History Provided: Patient - Mode of Arrival Mode of Arrival: Ambulatory - Timing Onset of Chief Complaint: 03/04/18 PMH - PMH Past Medical History: Yes Past Medical History: Migraines, Headaches, Hypertension Past Surgical History: Yes Surgical History: - Family History History of Family Medical Conditions: Yes Family Medical History: Diabetes Mellitus, [place], Hypertension - Social History Does patient currently use any type of tobacco product: Yes Have you used tobacco products in the last 12 months: Yes Type of Tobacco Use: Cigarettes Does any household member use tobacco: No Alcohol Use: None Do you use any recreational Drugs:: No Lives With: Family - infectious screening In the last 2 months have you had wt loss of >10#?: NO Have you had fever, night sweats or hemotysis?: No Have you traveled outside the country in the last 6 months?: No Isolation: Standard ROS - Review of Systems Constitutional: No Symptoms Reported Eyes: No Symptoms Reported ENTM: No Symptoms Reported Respiratoy: Short of Breath Cardiovascular: No Symptoms Reported, Chest Pain Gastrointestinal/Abdominal: No Symptoms Reported Genitourinary: No Symptoms Reported Neurological: No Symptoms Reported Musculoskeletal: No Symptoms Reported Integumentary: No Symptoms Reported Hematologic/Lymphatic: No Symptoms Reported Endocrine: No Symptoms Reported Psychiatric: No Symptoms Reported All Other Systems: Reviewed and Negative PE - Vital Signs Vitals: Temperature 98.2 F Pulse Rate [Right Brachial] 66 Pulse Rate 64 Respiratory Rate 16 Blood Pressure [Right Arm] 146/78 Blood Pressure [Left Arm] 161/95 Blood Pressure 175/93 O2 Sat by Pulse Oximetry 97 - General Limitations: No Limitations General Appearance: Alert, In No Apparent Distress - Head Head Exam: Normal Inspection - Eyes Eye exam: Normal Appearance - ENT ENT Exam: Normal Exam External Ear Exam: Normal External Inspection TM/Canal Exam: Bilateral Normal Nose Exam: Normal Nose Exam Mouth Exam: Normal Inspection Throat Exam: Normal Inspection - Neck Neck Exam: Normal Inspection - Chest Chest Inspection: Normal Inspection - Respiratory Respiratory Exam: Normal Lung Sounds Bilat - Cardiovascular Cardiovascular Exam: Regular Rate, Normal Rhythm, +S1, +S2 - Abdominal Exam Abdominal Exam: Normal Inspection, Normal Bowel Sounds, Soft - Extremities Extremities Exam: Normal Inspection, Full ROM - Back Back Exam: Normal Inspection - Neurologic Neurological Exam: Alert, Oriented X3 - Psychiatric Psychiatric Exam: Normal Affect, Normal Mood - Skin Skin Exam: Warm, Dry, Intact, Normal Color ROR - Labs Reviewed Laboratory Results Reviewed?: Yes Result Diagrams: 03/04/18 02:24 Laboratory: WBC 6.0 X10^3/uL (3.6-10.0) 03/04/18 02:24 RBC 5.03 X10^6/uL (3.5-5.4) 03/04/18 02:24 Hgb 12.8 g/dL (12.0-16.0) 03/04/18 02:24 Hct 38.9 % (36.0-47.0) 03/04/18 02:24 MCV 77.3 fL (80.0-100.0) L 03/04/18 02:24 MCH 25.4 pg (27.0-34.0) L 03/04/18 02:24 MCHC 32.8 g/dL (33.0-35.0) L 03/04/18 02:24 RDW 13.2 % (11.6-16.5) 03/04/18 02:24 Plt Count 255 X10^3/uL (150.0-450.0) 03/04/18 02:24 Plt Count Comment Adequate (ADEQUATE) 03/04/18 02:24 MPV 8.4 fL (7.4-11.0) 03/04/18 02:24 Neut % (Auto) 42.1 % (42.0-75.0) 03/04/18 02:24 Lymph % (Auto) 41.6 % (21.0-51.0) 03/04/18 02:24 [place] % (Auto) 12.0 % (0.0-13.0) 03/04/18 02:24 Eos % (Auto) 3.2 % (0.9-2.9) H 03/04/18 02:24 Baso % (Auto) 1.1 % (0.2-1.0) H 03/04/18 02:24 Neut # (Auto) 2.5 x10^3/uL (2.2-4.8) 03/04/18 02:24 Lymph # (Auto) 2.5 X10^3/uL (1.3-2.9) 03/04/18 02:24 [place] # (Auto) 0.7 x10^3/uL (0.3-0.8) 03/04/18 02:24 Eos # (Auto) 0.2 x10^3/uL (0.0-0.2) 03/04/18 02:24 Baso # (Auto) 0.1 X10^3/uL (0.0-0.1) 03/04/18 02:24 Absolute Nucleated RBC 0.1 /100WBC 03/04/18 02:24 Plt Morphology Comment Normal (NORMAL) 03/04/18 02:24 RBC Morphology Abnormal (NORMAL) A 03/04/18 02:24 Hypochromasia Slight A 03/04/18 02:24 - EKG [place]: Normal Rhythm: NSR Block: None Hypertrophy: None ST: Normal - Diagnosis Discharge Problem: Seasonal allergies, Insomnia - Discharge Plan Disposition: 01 HOME, SELF-CARE Condition: Stable - Follow ups/Referrals Follow ups/Referrals: NFD,None [Primary Care Provider] - 3 days - Instructions Instructions: Allergies, Adult
[2018-03-04] MEDS ORDERED: DUONEB 0.5 MG/3 MG ONE (02:16)
[2018-03-04] MEDS ORDERED: ATARAX TAB 25 MG PO ONE ×2 (02:23→02:34)
[2018-03-04 02:37] LABS: BASOPHILS # (AUTO) 0.1 X10^3/uL (0.0-0.1); BASOPHILS % (AUTO) 1.1 % (0.2-1.0); EOSINOPHILS # (AUTO) 0.2 x10^3/uL (0.0-0.2); EOSINOPHILS % (AUTO) 3.2 % (0.9-2.9); HEMATOCRIT 38.9 % (36.0-47.0); HEMOGLOBIN 12.8 g/dL (12.0-16.0); LYMPHOCYTES # (AUTO) 2.5 X10^3/uL (1.3-2.9); LYMPHOCYTES % (AUTO) 41.6 % (21.0-51.0); MEAN CORPUSCULAR HEMOGLOBIN 25.4 pg (27.0-34.0); MEAN CORPUSCULAR HGB CONC 32.8 g/dL (33.0-35.0); MEAN CORPUSCULAR VOLUME 77.3 fL (80.0-100.0); MEAN PLATELET VOLUME 8.4 fL (7.4-11.0); MONOCYTES # (AUTO) 0.7 x10^3/uL (0.3-0.8); NEUTROPHILS # (AUTO) 2.5 x10^3/uL (2.2-4.8); NEUTROPHILS % (AUTO) 42.1 % (42.0-75.0); PLATELET COUNT 255 X10^3/uL (150.0-450.0); RED BLOOD COUNT 5.03 X10^6/uL (3.5-5.4); RED CELL DISTRIBUTION WIDTH 13.2 % (11.6-16.5)
[2018-03-04 02:48] LABS: HYPOCHROMASIA SLIGHT; PLATELET MORPHOLOGY COMMENT NORMAL (NORMAL)
[2018-03-04 03:04] VITALS: BP 154/79
== END 2018-03-04 03:10 | disposition home or self-care (01) ==
LOC: ER 01:36
DX: G47.00 Insomnia, unspecified (principal); J30.2 Other seasonal allergic rhinitis
CPT/HCPCS: 36415; 85025; 93005; 93010; 94640; 99282; 99283; J7620

== ENCOUNTER 2018-10-01 10:07 | Observation (INO) ==
[2018-10-01] MEDS ORDERED: ZOFRAN INJ 4 MG VIAL IVP ONE (10:52)
[2018-10-01] MEDS ORDERED: ZOFRAN INJ 4 MG VIAL ONE (10:56)
[2018-10-01] MEDS ORDERED: NS 1000 ML 1,000 ML ONE (10:56)
--- NOTE | 2018-10-01 10:56 | DR.EXTPAIN ---
HPI - Time seen Time seen: 10:49 - PCP Primary Care Physician: ingrid - Complaint/Symptoms Chief Complaint Doctor Comments: Patient states she woke up at 6am with vomiting, diarrhea and headache. States she has had Migraines before and this headache has been going on for two days. State she takes Coumadin 20mg daily ( 10mg bid) for a long time over 4-5 years. States her Pt was done a month ago but she do not remember the results.. She is a patient of Dr. Zhang and was takeing Lorcets for her headaches but they stopped them. She smokes 1/2 pack cigarettes daily but denies alcohol or drug usage. States her periods has been regular but she is not on any contraceptives. She denies hematuria, dysuria, fever or chills but has been having diarrhea with decreased appetite. States she has been drinking Gatoraide but has not eaten in two days. States the pain is 9 of 10.. States she is having right knee pain and had a normal x-ray on 09/18/18. Chief Complaint:: patient stated she has been nausea and vomiting since yesterday, having a migraine headache for 2 days, and her leg is still hurting from her last er visit when she thought she had a blood clot. - Nurses notes reviewed Nurses Notes Review: Yes - Source History Provided: Patient - Mode of arrival Mode of Arrival: Ambulatory - Timing Onset of Chief Complaint: 09/29/18 - Context History of: Arthritis - Associated signs and symptoms Associated Signs and Symptoms: Pain, Swelling (right knee), Headache PMH - PMH Past Medical History: Yes Past Medical History: Hypertension, Migraines, Headaches Past Surgical History: Yes Surgical History: - Family History History of Family Medical Conditions: Yes Family Medical History: Diabetes Mellitus, [place], Hypertension - Social History Does patient currently use any type of tobacco product: No Have you used tobacco products in the last 12 months: No Type of Tobacco Use: None Does any household member use tobacco: No Alcohol Use: None Do you use any recreational Drugs:: No Lives With: Family Lives Where: Home - infectious screening In the last 2 months have you had wt loss of >10#?: NO Have you had fever, night sweats or hemotysis?: No Have you traveled outside the country in the last 6 months?: No Isolation: Standard ROS - Review of Systems Constitutional: No Symptoms Reported, Weakness, Loss of Appetite Eyes: No Symptoms Reported. negative: See HPI, Eye Pain, Blurred Vision, Tearing, Discharge, Photophobia, Diplopia, Other ENTM: No Symptoms Reported Respiratoy: No Symptoms Reported Cardiovascular: No Symptoms Reported. negative: See HPI, Chest Pain, Edema, Palpitations, Syncope, Cyanosis, Skin Mottling, Other Gastrointestinal/Abdominal: Abdominal Pain, Diarrhea, Nausea, Vomiting Genitourinary: No Symptoms Reported. negative: See HPI, Discharge, Dysuria, Frequency, Hematuria, Pain, Bleeding, Other Neurological: No Symptoms Reported, Headache, Weakness. negative: See HPI, Anxiety, Depressed, Emotional Problems, Numbness, Paresthesia, Pre-existing Deficit, Seizure, Tingling, Tremors, Dizziness, Problems Walking, Speech Problem, Other Musculoskeletal: No Symptoms Reported Integumentary: No Symptoms Reported Hematologic/Lymphatic: No Symptoms Reported, Blood Clots (leg) Endocrine: No Symptoms Reported Psychiatric: No Symptoms Reported PE - General Limitations: No Limitations General Appearance: Alert, In No Apparent Distress - Head Head Exam: Normal Inspection, Atraumatic, Normocephalic - Eyes Eye exam: Normal Appearance, PERRL, EOMI. negative: Scleral Icterus, Conjunctival Injection, Nystagmus, Miosis, Mydrasis, Periorbital Swelling, Periorbital Tenderness, Other - ENT ENT Exam: Normal Exam, Normal Oropharynx, Normal External Ear Exam, Mucous Membranes Moist, TM's Normal Bilaterally - Neck Neck Exam: Normal Inspection, Full ROM, Trachea Midline - Chest Chest Inspection: Normal Inspection, Symmetric Chest Wall Rise - Respiratory Respiratory Exam: Normal Lung Sounds Bilat Respiratory Exam: Bilateral Clear to Auscultation - Cardiovascular Cardiovascular Exam: Regular Rate, Normal Rhythm, Normal Heart Sounds - Abdominal Exam Abdominal Exam: Normal Inspection, Normal Bowel Sounds, Soft, Tenderness (RLQ and suprapubic tenderness) Abdominal Tenderness: RUQ, Suprapubic, Moderate - Extremities Extremities Exam: Normal Inspection, Full ROM, Normal Capillary Refill - Upper Extremities Shoulder Exam: Normal Inspection, Full ROM Arm Exam: Normal Inspection, Full ROM Elbow Exam: Normal Inspection, Full ROM Forearm Exam: Normal Inspection, Full ROM Hand Exam: Normal Inspection, Full ROM Neuromotor Exam: Normal Exam Neurosensory Exam: Normal Exam Hand Tendon Exam: negative: Flexor Digitorium Profundus (Location), Flexor Digitorium Superficialis (Location) (normal), Extensor Tendon (Location), Other Upper Ext. Vascular Exam: Capillary Refill (normal), Radial Pulse (normal) - Lower Extremities Hip/Pelvis Exam: Normal Inspection, Full ROM Upper Leg Exam: Normal Inspection, Full ROM Knee Exam: Normal Inspection, Full ROM, Tenderness (right knee with crepitus; tenderness on flexion) Lower Leg Exam: Normal Inspection, Full ROM Ankle Exam: Normal Inspection, Full ROM Foot/Toe Exam: Normal Inspection, Full ROM Neurovascular/Tendon Exam: Normal Capillary Refill Gait Exam: Not Tested/Not Observed - Back Back Exam: Normal Inspection, Full ROM - Neurological Neurological Exam: Alert, Oriented X3, CN II-XII Intact, Reflexes Normal. negative: Normal Gait (gait not tested) - Psychiatric Psychiatric Exam: Normal Affect, Normal Mood - Skin Skin Exam: Warm, Dry, Intact, Normal Color Type of Lesion: negative: Rash, Abscess, Laceration, Foreign Body, Bite/Sting, Abrasion, Other Distribution: negative: Generalized, Involves Palms/Soles, Head, Face, Neck, Thorax, Chest, Back, Abdomen, Genitals, LUE, LLE, RUE, RLE, Other Description: negative: Size, Tenderness, Erythematous, Swelling, Macular, Papular, Vesicular, Blisters, Cofluent, Bullous, Petechial, Purpuric, Urticarial, Crusting, Discharge, Fluctuant, Indurated, Other - Vital Signs Vitals: Temperature 97.2 F Pulse Rate 77 Respiratory Rate 16 Blood Pressure [Right Arm] 146/78 Blood Pressure [Left Arm] 170/105 Blood Pressure 166/74 O2 Sat by Pulse Oximetry 99 Course - Reevaluation 1st: Improved - Consultation Called: 13:35 Call Returned: 13:35 (Dr. Kumar to admit) - Education/Counseling Education/Counseling: Patient, Family Educated On: Treatment, Diagnosis, Needs for Follow Up ROR - Labs Reviewed Laboratory Results Reviewed?: Yes (All labs and x-ray results reviewed and discussed with patient) Result Diagrams: 10/01/18 11:21 10/01/18 11:21 - XRAY XRAY Interpreted by: Radiologist (CT head: No acute intracranial process identified. Chronis fronto ethmoidal sinusitis), Self (CT abdomen and pelvis: 3 cm left ovarian cyst; Bibasilar pulmonary nodules.), Both (Knee series 09/18/18: Unremarkable three view right knee x-rays.) XRAY Findings: CT abdomen and pelvis: No acute findings. 3 cm left ovarian cyst. Bibasilar - Labs Reviewed Laboratory: WBC 8.5 X10^3/uL (3.6-10.0) 10/01/18 11:21 RBC 5.10 X10^6/uL (3.5-5.4) 10/01/18 11:21 Hgb 13.3 g/dL (12.0-16.0) 10/01/18 11:21 Hct 40.5 % (36.0-47.0) 10/01/18 11:21 MCV 79.4 fL (80.0-100.0) L 10/01/18 11:21 MCH 26.0 pg (27.0-34.0) L 10/01/18 11:21 MCHC 32.8 g/dL (33.0-35.0) L 10/01/18 11:21 RDW 13.7 % (11.6-16.5) 10/01/18 11:21 Plt Count 276 X10^3/uL (150.0-450.0) 10/01/18 11:21 MPV 7.9 fL (7.4-11.0) 10/01/18 11:21 Neut % (Auto) 83.9 % (42.0-75.0) H 10/01/18 11:21 Lymph % (Auto) 10.2 % (21.0-51.0) L 10/01/18 11:21 [place] % (Auto) 4.4 % (0.0-13.0) 10/01/18 11:21 Eos % (Auto) 0.8 % (0.9-2.9) L 10/01/18 11:21 Baso % (Auto) 0.7 % (0.2-1.0) 10/01/18 11:21 Neut # (Auto) 7.1 x10^3/uL (2.2-4.8) H 10/01/18 11:21 Lymph # (Auto) 0.9 X10^3/uL (1.3-2.9) L 10/01/18 11:21 [place] # (Auto) 0.4 x10^3/uL (0.3-0.8) 10/01/18 11:21 Eos # (Auto) 0.1 x10^3/uL (0.0-0.2) 10/01/18 11:21 Baso # (Auto) 0.1 X10^3/uL (0.0-0.1) 10/01/18 11:21 Absolute Nucleated RBC 0.0 /100WBC 10/01/18 11:21 INR Target Range - 10/01/18 11:21 INR 1.02 (0.8-1.3) 10/01/18 11:21 APTT 29.2 SECONDS (22.9-36.5) 10/01/18 11:21 PTT Comment - 10/01/18 11:21 D-Dimer 685 ng/mL (0-400) H* 10/01/18 11:21 Sodium 139 mmol/L (136-145) 10/01/18 11:21 Corrected Sodium TNP 10/01/18 11:21 Potassium 3.9 mmol/L (3.5-5.1) 10/01/18 11:21 Chloride 106 mmol/L (98-107) 10/01/18 11:21 Carbon Dioxide 24.3 mmol/L (21-32) 10/01/18 11:21 BUN 9 mg/dL (7-18) 10/01/18 11:21 Creatinine 0.61 mg/dL (0.55-1.02) 10/01/18 11:21 Est GFR (MDRD) Af Amer > 60 (>60) 10/01/18 11:21 Est GFR (MDRD) Non-Af > 60 (>60) 10/01/18 11:21 Glucose 98 mg/dL (65-99) 10/01/18 11:21 Calcium 8.2 mg/dL (8.5-10.1) L 10/01/18 11:21 Corrected Calcium TNP 10/01/18 11:21 Total Bilirubin 0.70 mg/dL (0.2-1.0) 10/01/18 11:21 AST 16 Units/L (15-37) 10/01/18 11:21 ALT 26 Units/L (12-78) 10/01/18 11:21 Alkaline Phosphatase 68 Units/L (46-116) 10/01/18 11:21 Total Protein 7.6 g/dL (6.4-8.2) 10/01/18 11:21 Albumin 3.7 g/dL (3.4-5.0) 10/01/18 11:21 Globulin 3.9 g/dL (2.5-4.5) 10/01/18 11:21 Albumin/Globulin Ratio 0.9 Ratio (1.1-2.1) L 10/01/18 11:21 Amylase 28 Units/L (25-115) 10/01/18 11:21 Lipase 91 Units/L (73-393) 10/01/18 11:21 HCG, Qual Negative <10 mIU/mL 10/01/18 11:21 - Diagnosis Discharge Problem: Acute gastroenteritis, Headache, Pulmonary nodule, Ovarian cyst, left, Pain of right lower extremity DVT (deep venous thrombosis) Qualifiers: DVT location: lower extremity Laterality: unspecified laterality - Discharge Plan Disposition: ADMITTED INPATIENT Condition: Stable - Follow ups/Referrals Follow ups/Referrals: Clayton ZHANG [Primary Care Provider] - 3 days - Instructions
[2018-10-01] MEDS ORDERED: NS 1000 ML 1,000 ML IV SCH (11:00)
[2018-10-01] MEDS ORDERED: PHENERGAN INJ 25 MG IM ONE (11:25)
[2018-10-01] MEDS ORDERED: REGLAN INJ 10 MG VIAL IV STA (11:25)
--- NOTE | 2018-10-01 11:26 | CT ---
HISTORY: Headache and blurred vision Study: CT brain without contrast Comparison: June 27, 2017 Technique: Multiple axial images of the brain were obtained from the skull base to the vertex without administration of IV contrast. AEC was utilized. Findings: No acute intraparenchymal hemorrhage or mass can be identified. No extra-axial fluid collections are seen. No alteration in the attenuation of the brain parenchyma can be identified to suggest acute or subacute ischemic change. The ventricular system is symmetric and nondilated. There is mild chronic fronto ethmoidal sinusitis. IMPRESSION: No acute intracranial process can be identified. Mild chronic fronto ethmoidal sinusitis. Reported By:
[2018-10-01] MEDS ORDERED: REGLAN INJ 10 MG VIAL ONE (11:28)
[2018-10-01] MEDS ORDERED: PHENERGAN INJ 25 MG ONE (11:28)
[2018-10-01 11:38] LABS: BASOPHILS # (AUTO) 0.1 X10^3/uL (0.0-0.1); BASOPHILS % (AUTO) 0.7 % (0.2-1.0); EOSINOPHILS # (AUTO) 0.1 x10^3/uL (0.0-0.2); EOSINOPHILS % (AUTO) 0.8 % (0.9-2.9); HEMATOCRIT 40.5 % (36.0-47.0); HEMOGLOBIN 13.3 g/dL (12.0-16.0); LYMPHOCYTES # (AUTO) 0.9 X10^3/uL (1.3-2.9); LYMPHOCYTES % (AUTO) 10.2 % (21.0-51.0); MEAN CORPUSCULAR HGB CONC 32.8 g/dL (33.0-35.0); MEAN CORPUSCULAR VOLUME 79.4 fL (80.0-100.0); MEAN PLATELET VOLUME 7.9 fL (7.4-11.0); MONOCYTES # (AUTO) 0.4 x10^3/uL (0.3-0.8); MONOCYTES % (AUTO) 4.4 % (0.0-13.0); NEUTROPHILS # (AUTO) 7.1 x10^3/uL (2.2-4.8); NEUTROPHILS % (AUTO) 83.9 % (42.0-75.0); PLATELET COUNT 276 X10^3/uL (150.0-450.0); RED CELL DISTRIBUTION WIDTH 13.7 % (11.6-16.5); WHITE BLOOD COUNT 8.5 X10^3/uL (3.6-10.0)
[2018-10-01 11:52] LABS: ALANINE AMINOTRANSFERASE 26 Units/L (12-78); ALBUMIN 3.7 g/dL (3.4-5.0); ALKALINE PHOSPHATASE 68 Units/L (46-116); AMYLASE 28 Units/L (25-115); ASPARTATE AMINO TRANSFERASE 16 Units/L (15-37); BLOOD UREA NITROGEN 9 mg/dL (7-18); CALCIUM 8.2 mg/dL (8.5-10.1); CARBON DIOXIDE 24.3 mmol/L (21-32); CHLORIDE 106 mmol/L (98-107); CREATININE 0.61 mg/dL (0.55-1.02); LIPASE 91 Units/L (73-393); SODIUM 139 mmol/L (136-145); TOTAL PROTEIN 7.6 g/dL (6.4-8.2); eGFR NON BLACK RACES > 60 (>60)
[2018-10-01 11:57] LABS: SERUM PREGNANCY TEST, QUAL NEGATIVE <10 mIU/mL
--- NOTE | 2018-10-01 12:11 | CT ---
HISTORY: Nausea, vomiting, diarrhea Study: CT abdomen and pelvis without contrast Comparison: None Technique: Multiple axial images of the abdomen and pelvis were obtained from the lung bases to the pubic symphysis without the administration of IV contrast. AEC was utilized. Findings: There are several subpleural basilar pulmonary nodules which are likely postinflammatory in the largest of which is located in the left lower lobe measuring 7 mm and pleural based for which temporal surveillance is recommended to document stability. The liver, spleen, pancreas, kidneys, and adrenal glands are unremarkable. The gallbladder is unremarkable in its CT appearance. No significant mesenteric or retroperitoneal lymphadenopathy or stranding can be observed. No free fluid or free air is seen within the abdomen. No bowel wall thickening or bowel dilatation is present on this limited noncontrast exam. The urinary bladder is grossly unremarkable. The bony structures are grossly intact. There is a small mesenteric fat containing umbilical hernia. There is a probable 3 cm left ovarian cyst which is likely physiologic in a patient of this age. IMPRESSION: No definite acute finding within the abdomen or pelvis to explain the patient's clinical symptoms. Probable incidental 3 cm left ovarian cyst. Bibasilar pulmonary nodules which are likely postinflammatory for which 6 month follow-up dedicated CT chest without contrast is recommended. Reported By:
[2018-10-01] MEDS ORDERED: DEMEROL INJ IVP ONE (12:53)
[2018-10-01] MEDS ORDERED: DEMEROL INJ ONE (12:55)
[2018-10-01] MEDS ORDERED: LOVENOX INJ 80 MG SYR SC SCH (13:00)
[2018-10-01] MEDS ORDERED: PEPCID 20 MG IV PREMIX* 20 MG/50 ML BAG IV PRN (13:39)
[2018-10-01] MEDS ORDERED: MORPHINE SULFATE INJ 2 MG INJ IVP PRN (13:39)
--- NOTE | 2018-10-01 14:01 | CT ---
HISTORY: Abnormal D-dimer Study: CT chest with contrast Comparison: March 04, 2017 Technique: Multiple axial images of the chest were obtained from the thoracic inlet to the upper abdomen after the administration of IV contrast. Findings: The mediastinum does not demonstrate significant pathological lymphadenopathy. There is no significant pericardial effusion observed. The thoracic aorta is normal in its contour without evidence for aneurysmal dilatation. Timing of the contrast bolus is somewhat suboptimal. As visualized no definite large focal well-circumscribed filling defects are appreciated within the main pulmonary arteries. Multiple nodular opacities are again seen within both lower lobes. Some of these nodules have decreased in size while others have not significantly changed. Follow-up exam may be performed in 12 months for further evaluation. Otherwise no CT evidence of focal consolidation, pneumothorax, or pleural effusion is identified. IMPRESSION: No definite CT evidence of pulmonary embolism is appreciated as discussed above. Subcentimeter nodules within both lower lobes as noted above. Reported By:
[2018-10-01] MEDS: PERCOCET TAB 5/325 MG PO PRN ×2 (16:00→20:48)
[2018-10-01] MEDS ORDERED: XANAX PO PRN (20:35)
[2018-10-01] MEDS: ELIQUIS PO SCH (20:47)
[2018-10-01] MEDS: PHENERGAN INJ 25 MG IVP PRN (20:47)
[2018-10-01] MEDS: D5 1/2 NS 1000 ML 1,000 ML IV SCH (20:47)
[2018-10-01 22:02] LABS: BILIRUBIN,URINE NEGATIVE (NEGATIVE); BLOOD/HEMOGLOBIN,URINE 1+ (NEGATIVE); GLUCOSE, URINE NEGATIVE (NEGATIVE); KETONES,URINE NEGATIVE (NEGATIVE); LEUKOCYTE ESTERASE ,URINE 1+ (NEGATIVE); NITRITES,URINE NEGATIVE (NEGATIVE); PH,URINE 6.5 (5.0 - 8.0); PROTEIN,URINE 1+ (NEGATIVE); UROBILINOGEN,URINE 2+ (NORMAL)
[2018-10-01 22:03] LABS: APPEARANCE,URINE CLEAR (CLEAR); COLOR,URINE YELLOW (YELLOW)
[2018-10-01 22:14] LABS: BACTERIA,URINE NEGATIVE /HPF (NEGATIVE); RBC,URINE 0-2 /HPF (NONE SEEN); SQUAMOUS EPITHELIAL CELL,UR RARE /HPF (NEGATIVE)
[2018-10-02] MEDS: D5 1/2 NS 1000 ML 1,000 ML IV SCH (03:10)
[2018-10-02] MEDS: PHENERGAN INJ 25 MG IVP PRN (04:36)
[2018-10-02] MEDS: PERCOCET TAB 5/325 MG PO PRN ×2 (04:36→11:00)
[2018-10-02 05:55] LABS: BASOPHILS # (AUTO) 0.1 X10^3/uL (0.0-0.1); BASOPHILS % (AUTO) 0.9 % (0.2-1.0); EOSINOPHILS # (AUTO) 0.3 x10^3/uL (0.0-0.2); EOSINOPHILS % (AUTO) 4.6 % (0.9-2.9); LYMPHOCYTES # (AUTO) 2.2 X10^3/uL (1.3-2.9); LYMPHOCYTES % (AUTO) 37.2 % (21.0-51.0); MEAN CORPUSCULAR HEMOGLOBIN 25.6 pg (27.0-34.0); MEAN CORPUSCULAR HGB CONC 32.5 g/dL (33.0-35.0); MEAN CORPUSCULAR VOLUME 78.8 fL (80.0-100.0); MEAN PLATELET VOLUME 8.5 fL (7.4-11.0); MONOCYTES # (AUTO) 0.6 x10^3/uL (0.3-0.8); MONOCYTES % (AUTO) 10.1 % (0.0-13.0); NEUTROPHILS # (AUTO) 2.7 x10^3/uL (2.2-4.8); NEUTROPHILS % (AUTO) 47.2 % (42.0-75.0); PLATELET COUNT 254 X10^3/uL (150.0-450.0); RED CELL DISTRIBUTION WIDTH 13.6 % (11.6-16.5); WHITE BLOOD COUNT 5.8 X10^3/uL (3.6-10.0)
[2018-10-02 06:08] LABS: ALANINE AMINOTRANSFERASE 18 Units/L (12-78); ALBUMIN 2.9 g/dL (3.4-5.0); ALKALINE PHOSPHATASE 54 Units/L (46-116); ASPARTATE AMINO TRANSFERASE 12 Units/L (15-37); BLOOD UREA NITROGEN 9 mg/dL (7-18); CALCIUM 7.2 mg/dL (8.5-10.1); CARBON DIOXIDE 22.6 mmol/L (21-32); CHLORIDE 107 mmol/L (98-107); COR CA(FOR HYPOALB) 8.1 mg/dL (8.5-10.1); COR NA(FOR HYPERGLY) 140 mmol/L (136-145); CREATININE 0.65 mg/dL (0.55-1.02); SODIUM 140 mmol/L (136-145); TOTAL PROTEIN 6.4 g/dL (6.4-8.2); eGFR NON BLACK RACES > 60 (>60)
[2018-10-02 06:23] LABS: PLATELET MORPHOLOGY COMMENT NORMAL (NORMAL)
[2018-10-02] MEDS ORDERED: POTASSIUM CHL 60 MEQ/NS 0.45% 500 ML IV PRN (06:29)
[2018-10-02] MEDS ORDERED: KLOR-CON PO PRN (06:29)
[2018-10-02] MEDS ORDERED: MICRO K EXTEN CAP 10 MEQ PO PRN (06:29)
[2018-10-02] MEDS ORDERED: K-DUR TAB 20 MEQ PO PRN (06:29)
[2018-10-02] MEDS ORDERED: POTASSIUM CHLORIDE LIQ 20 MEQ UDC PO PRN (06:29)
[2018-10-02] MEDS ORDERED: K-RIDER 10 MEQ/NS 100 ML 10 MEQ/100 ML BAG IV PRN (06:29)
[2018-10-02] MEDS ORDERED: POTASSIUM CHL 40 MEQ/NS 0.45% 500 ML IV PRN (06:29)
[2018-10-02] MEDS: ELIQUIS PO SCH (08:52)
[2018-10-02] MEDS ORDERED: LOVENOX INJ 80 MG SYR SC SCH (09:00)
[2018-10-02 09:45] VITALS: BP 159/72
[2018-10-02 14:14] VITALS: BMI 28.8
--- NOTE | 2018-10-19 02:25 | DR.CARTERS ---
Short Stay Summary - Short Stay Summary for: Short Stay Summary for Date of:: 10/01/18 - Admission Date Date of Admission: 10/01/18 - Discharge Date Discharge Date: 10/02/18 - Admission Diagnoses (1) Acute gastroenteritis Status: Acute (2) DVT (deep venous thrombosis) Status: Acute (3) Headache Status: Acute (4) Migraine headache Status: Acute - Hospital Course Hospital Course: Patient presented to the ED with complaints she woke up at 6am with vomiting, diarrhea and headache. States she has had Migraines before and this headache has been going on for two days. State she takes Coumadin 20mg daily ( 10mg bid) for a long time over 4-5 years. States her Pt was done a month ago but she do not remember the results.. She is a patient of Dr. Zhang and was taking Lorcets for her headaches but they stopped them. She smokes 1/2 pack cigarettes daily but denies alcohol or drug usage. States her periods has been regular but she is not on any contraceptives. She denies hematuria, dysuria, fever or chills but has been having diarrhea with decreased appetite. States she has been drinking Gatorade but has not eaten in two days. States the pain is 9 of 10.. States she is having right knee pain and had a normal x-ray on 09/18/18. Patient was admitted. Patient had CTA with no acute findings for PE. Labs were monitored. IV hydration and anti-emetics were given. Symptoms improved and patient discharged home to be followed on op basis. - Discharge Medications Discharge Medications: Home Medication List apixaban [Eliquis] 5 mg PO BID #60 tab 10/02/18 [Rx] Prescriptions: apixaban [Eliquis] MIKE APONTE - Discharge Plan Disposition: HOME, SELF-CARE Condition: Stable Prescriptions: apixaban [Eliquis] 5 mg PO BID #60 tab - Follow up/Referrals Follow up/Referrals: Clayton ZHANG [Primary Care Provider] - 3 days - Instructions Instructions: Bleeding Precautions When on Anticoagulant Therapy, Adult, Migraine Headache, [id number], Viral Gastroenteritis, Adult, [id number], Nausea and Vomiting, Adult, [id number], Apixaban oral tablets Additional Instructions: Prescription for Eliquis 5mg take 1 by mouth twice a day. Stop Coumadin. Resume home medications as prescribed. Follow bleeding precautions as instructed. Diet as tolerated. Activity as tolerated. Follow up with Dr Zhang in one week. If symptoms return or worsen see your primary care provider immediately or return to the nearest emergency room. Forms: Patient Portal
== END 2018-10-02 11:05 | disposition home or self-care (01) ==
LOC: ER 10:09 → MED/SURG 10:09
PROVIDERS: ADMIT Internal Medicine; ATTEND Internal Medicine
CPT/HCPCS: 36415; 70450; 71275; 74176; 80053; 81001; 82150; 83690; 83735; 84132; 84703; 85025; 85378; 85610; 85730; 96365; 96367; 96372; 96374; 96375; 99217; 99283; 99284; A4216; A4222; S0028; G0378; J1650; J2175; J2405; J2550; J2765; J7030; S5010

== ENCOUNTER 2018-11-04 21:26 | Observation (INO) ==
--- NOTE | 2018-11-04 22:04 | DR.CP ---
HPI - Time Seen Time seen: 21:57 - PCP Primary Care Physician: DR. ZHANG - Complaint Chief Complaint Doctor Comments: Patient is complaining of xiphoid and right sided chest pain with right lower and upper back pain for the past three days getting progressively worst. Patient is complaining of sharp pain and sensation that something is weighing down on her chest. states she had similar pain a few years ago when she pulled a muscle at work but she has not hurt herself that she is aware of. She has a cough but denies fever, chills, cold or vomiting. States her last period was Oct 16 and she has an implant for contracception. She smokes 1/2 pack cigarettes daily and denies alcohol use but smokes marijuania with last time two days ago State she has had blood clots in both legs and in her left arm but none in her chest and she is taking coumadin 10mg daily. State she was unable to sleep tonight due to the pain. Chief Complaint:: PT C/O UPPER GENERALIZED CHEST PAIN THAT IS HEAVY AND CONSTANT IN NATURE. PT STATES THAT IT RADIATES THROUGH HER BACK BETWEEN HER SHOULDER BLADES. PT STATES THAT WHEN SHE LAYS BACK IT FEELS LIKE SHE CANT GET ENOUGH AIR. PT HAS HX OF BLOOD CLOTS. Self Treatment fo Chief Complaint: NONE - Reviewed Nurses Notes Review: Yes - Source History Provided: Patient - Mode of Arrival Mode of Arrival: Ambulatory - Timing Onset of Chief Complaint: 11/01/18 Came on: Gradually Pain: Present Now - Duration Duration: Intermittent How lon Duration: Days - Location Location of Chest Pain: Chest Chest Pain Radiation Location: Back - Context Onset: At rest, With light exertion, While Asleep Cardiac Risk Factors: Smoker PE Risk Factors: None History of: Similar pain in the past, DVT/PE Prehospital Care: None - Quality Quality: Sharp, Squeezing, Pressure like - Severity Severity: Moderate - Modifying Factors Worsens: Exertion, Movement Impoves: Nothing - Associated Signs and Symptoms Associated Signs and Symptoms: None PMH - PMH Past Medical History: Yes Past Medical History: Hypertension, Migraines, Headaches Past Medical History Comment: CLOTTING DISORDER, WITH HX OF MULTIPLE DVT Past Surgical History: Yes Surgical History: - Family History History of Family Medical Conditions: Yes Family Medical History: Diabetes Mellitus, Cancer - Social History Does patient currently use any type of tobacco product: Yes Have you used tobacco products in the last 12 months: Yes Type of Tobacco Use: Cigarettes Does any household member use tobacco: Yes Alcohol Use: None Do you use any recreational Drugs:: No Lives With: Family Lives Where: Home - infectious screening In the last 2 months have you had wt loss of >10#?: NO Have you had fever, night sweats or hemotysis?: No Have you traveled outside the country in the last 6 months?: No Isolation: Standard ROS - Review of Systems Constitutional: No Symptoms Reported Eyes: No Symptoms Reported. negative: See HPI, Eye Pain, Blurred Vision, Tearing, Discharge, Photophobia, Diplopia, Other ENTM: No Symptoms Reported Respiratoy: No Symptoms Reported, Dry Cough Cardiovascular: No Symptoms Reported, Chest Pain. negative: See HPI, Edema, Palpitations, Syncope, Cyanosis, Skin Mottling, Other Gastrointestinal/Abdominal: No Symptoms Reported. negative: See HPI, Abdominal Pain, Constipation, Diarrhea, Nausea, Vomiting, Food Intolerance, Other Genitourinary: No Symptoms Reported Neurological: No Symptoms Reported, Anxiety Musculoskeletal: No Symptoms Reported, Back Pain, Right Integumentary: No Symptoms Reported. negative: See HPI, Change in Color, Change in Hair/Nails, Dryness, Lesions, Lumps, Rash, Itching, Wound, Bruises, Juandice, Other Hematologic/Lymphatic: No Symptoms Reported, Blood Clots Endocrine: No Symptoms Reported. negative: See HPI, Excessive Sweating, Flushing, Intolerance to Cold, Intolerance to Heat, Increased Hunger, Increased Thirst, Increased Urine, Unexplained Weight Gain, Unexplained Weight Loss, Failure to Thrive, Decreased Appetite, Other Psychiatric: No Symptoms Reported, Anxiety. negative: See HPI, Depression, Hallucinations, Excessive crying, Suicidal, Other PE - General Limitations: No Limitations General Appearance: Alert, In Distress (slight) - Head Head Exam: Normal Inspection, Atraumatic, Normocephalic - Eyes Eye exam: Normal Appearance, PERRL, EOMI. negative: Scleral Icterus, Conjunctival Injection, Nystagmus, Miosis, Mydrasis, Periorbital Swelling, Periorbital Tenderness, Other - ENT ENT Exam: Normal Exam, Normal Oropharynx, Normal External Ear Exam, Mucous Membranes Moist, TM's Normal Bilaterally - Chest Chest Inspection: Normal Inspection, Symmetric Chest Wall Rise. negative: Tenderness, Rash, Abscess, Other - Respiratory Respiratory Exam: Normal Lung Sounds Bilat. negative: Accessory Muscle Use, Chest Wall Tenderness, Prolonged Expiratory Phase, Respiratory Distress, Stridor, Other Respiratory Exam: Bilateral Clear to Auscultation - Cardiovascular Cardiovascular Exam: Regular Rate, Normal Rhythm, Normal Heart Sounds. negative: Bradycardia, Tachycardia, Irregular Rhythm, Systolic Murmur, Diastolic Murmur, Rubs, Gallop, Clicks, JVD, +S1, +S2, +S3, +S4, Other Pulse: Normal, Radial Edema: Normal - Abdominal Exam Abdominal Exam: Normal Inspection, Normal Bowel Sounds, Soft. negative: Distention, Tenderness, Guarding, Rebound, Rigidity, Dimnished Bowel Sounds, Hyperactive Bowel Sounds, Hypoactive Bowel Sounds, Organomegaly, Trauma, Incision, Ascites, Mass, Bruit, Pulsatile Mass, Hernia, Other Abdominal Tenderness: negative: RUQ, RLQ, LUQ, LLQ, Epigastrium, Suprapubic, Diffuse, Mild, Moderate, Severe, Other - Extremities Extremities Exam: Normal Inspection, Full ROM, Normal Capillary Refill. negativ e: Tenderness, Edema, Joint Swelling, Calf Tenderness, Other - Back Back Exam: Normal Inspection, Full ROM, (R) CVA Tenderness, Muscle Spasm, Paraspinal Tenderness (right paraspinal tenderness) - Neurologic Neurological Exam: Alert, Oriented X3, CN II-XII Intact, Normal Gait, Reflexes Normal - Psychiatric Psychiatric Exam: Normal Affect, Normal Mood. negative: Depressed, Agitated, Anxious, Flat Affect, Manic, Homicidal Ideation, Suicidal Ideation, Other - Skin Skin Exam: Warm, Dry, Intact, Normal Color. negative: Rash, Cyanosis, Diaphor esis, Erythema, Pallor, Mottled, Other - Vitals Vitals: Temperature 98.0 F Pulse Rate [Left Radial] 63 Pulse Rate 68 Respiratory Rate 18 Blood Pressure [Right Arm] 146/78 Blood Pressure [Left Arm] 153/75 Blood Pressure 159/94 O2 Sat by Pulse Oximetry 99 Course - Consultation Called: 00:24 Call Returned: 00:24 (Dr. Jimenez to admit) - Education/Counseling Education/Counseling: Patient Educated On: Treatment, Diagnosis, Needs for Follow Up ROR - Labs Reviewed Laboratory Results Reviewed?: Yes (All labs and x-ray results reviewed and discussed with patient) Result Diagrams: 11/04/18 22:10 11/04/18 22:10 - XRAY XRAY Interpreted by: Radiologist (CTA No PTE or acute chest process) - EKG Rate: 60 [place]: Normal Rhythm: NSR Block: None Hypertrophy: None ST: Normal - Labs Reviewed Laboratory: WBC 5.3 X10^3/uL (3.6-10.0) 11/04/18 22:10 RBC 4.88 X10^6/uL (3.5-5.4) 11/04/18 22:10 Hgb 12.4 g/dL (12.0-16.0) 11/04/18 22:10 Hct 38.3 % (36.0-47.0) 11/04/18 22:10 MCV 78.6 fL (80.0-100.0) L 11/04/18 22:10 MCH 25.4 pg (27.0-34.0) L 11/04/18 22:10 MCHC 32.3 g/dL (33.0-35.0) L 11/04/18 22:10 RDW 13.9 % (11.6-16.5) 11/04/18 22:10 Plt Count 256 X10^3/uL (150.0-450.0) 11/04/18 22:10 Plt Count Comment Adequate (ADEQUATE) 11/04/18 22:10 MPV 8.3 fL (7.4-11.0) 11/04/18 22:10 Neut % (Auto) 40.7 % (42.0-75.0) L 11/04/18 22:10 Lymph % (Auto) 43.6 % (21.0-51.0) 11/04/18 22:10 [place] % (Auto) 11.9 % (0.0-13.0) 11/04/18 22:10 Eos % (Auto) 2.3 % (0.9-2.9) 11/04/18 22:10 Baso % (Auto) 1.5 % (0.2-1.0) H 11/04/18 22:10 Neut # (Auto) 2.2 x10^3/uL (2.2-4.8) 11/04/18 22:10 Lymph # (Auto) 2.3 X10^3/uL (1.3-2.9) 11/04/18 22:10 [place] # (Auto) 0.6 x10^3/uL (0.3-0.8) 11/04/18 22:10 Eos # (Auto) 0.1 x10^3/uL (0.0-0.2) 11/04/18 22:10 Baso # (Auto) 0.1 X10^3/uL (0.0-0.1) 11/04/18 22:10 Absolute Nucleated RBC 0.1 /100WBC 11/04/18 22:10 Plt Morphology Comment Normal (NORMAL) 11/04/18 22:10 RBC Morphology Abnormal (NORMAL) A 11/04/18 22:10 Hypochromasia Slight A 11/04/18 22:10 INR Target Range - 11/04/18 22:10 INR 1.06 (0.8-1.3) 11/04/18 22:10 APTT 27.1 SECONDS (22.9-36.5) 11/04/18 22:10 PTT Comment - 11/04/18 22:10 D-Dimer 428 ng/mL (0-400) H* 11/04/18 22:10 Sodium 140 mmol/L (136-145) 11/04/18 22:10 Corrected Sodium TNP 11/04/18 22:10 Potassium 3.5 mmol/L (3.5-5.1) 11/04/18 22:10 Chloride 104 mmol/L (98-107) 11/04/18 22:10 Carbon Dioxide 23.4 mmol/L (21-32) 11/04/18 22:10 BUN 16 mg/dL (7-18) 11/04/18 22:10 Creatinine 0.59 mg/dL (0.55-1.02) 11/04/18 22:10 Est GFR (MDRD) Af Amer > 60 (>60) 11/04/18 22:10 Est GFR (MDRD) Non-Af > 60 (>60) 11/04/18 22:10 Glucose 90 mg/dL (65-99) 11/04/18 22:10 Calcium 8.0 mg/dL (8.5-10.1) L 11/04/18 22:10 Corrected Calcium TNP 11/04/18 22:10 Magnesium 1.7 mg/dL (1.7-2.9) 11/04/18 22:10 Total Bilirubin 0.70 mg/dL (0.2-1.0) 11/04/18 22:10 AST 12 Units/L (15-37) L 11/04/18 22:10 ALT 19 Units/L (12-78) 11/04/18 22:10 Alkaline Phosphatase 57 Units/L (46-116) 11/04/18 22:10 Creatine Kinase 177 Units/L (26-192) 11/04/18 22:10 CK-MB (CK-2) < 1.0 ng/mL (0-4.0) 11/04/18 22:10 CK/CKMB % Calc 0.6 % (<4) 11/04/18 22:10 Troponin I < 0.02 ng/mL (0-1.5) 11/04/18 22:10 Total Protein 7.5 g/dL (6.4-8.2) 11/04/18 22:10 Albumin 4.0 g/dL (3.4-5.0) 11/04/18 22:10 Globulin 3.5 g/dL (2.5-4.5) 11/04/18 22:10 Albumin/Globulin Ratio 1.1 Ratio (1.1-2.1) 11/04/18 22:10 - Diagnosis Discharge Problem: Acute chest pain, Inadequate anticoagulation, Pulmonary nodule, 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
--- NOTE | 2018-11-04 22:18 | RAD ---
Chest, one view Indication: Chest pain Comparison: 06/27/2017 Findings: The heart is normal in size. No focal infiltrate, significant effusion or pneumothorax is identified. There is no acute osseous abnormality. Impression: No acute cardiopulmonary abnormality. Reported By:
[2018-11-04 22:21] LABS: BASOPHILS # (AUTO) 0.1 X10^3/uL (0.0-0.1); BASOPHILS % (AUTO) 1.5 % (0.2-1.0); EOSINOPHILS # (AUTO) 0.1 x10^3/uL (0.0-0.2); EOSINOPHILS % (AUTO) 2.3 % (0.9-2.9); HEMATOCRIT 38.3 % (36.0-47.0); HEMOGLOBIN 12.4 g/dL (12.0-16.0); LYMPHOCYTES # (AUTO) 2.3 X10^3/uL (1.3-2.9); LYMPHOCYTES % (AUTO) 43.6 % (21.0-51.0); MEAN CORPUSCULAR HEMOGLOBIN 25.4 pg (27.0-34.0); MEAN CORPUSCULAR HGB CONC 32.3 g/dL (33.0-35.0); MEAN CORPUSCULAR VOLUME 78.6 fL (80.0-100.0); MEAN PLATELET VOLUME 8.3 fL (7.4-11.0); MONOCYTES # (AUTO) 0.6 x10^3/uL (0.3-0.8); MONOCYTES % (AUTO) 11.9 % (0.0-13.0); NEUTROPHILS # (AUTO) 2.2 x10^3/uL (2.2-4.8); NEUTROPHILS % (AUTO) 40.7 % (42.0-75.0); PLATELET COUNT 256 X10^3/uL (150.0-450.0); RED BLOOD COUNT 4.88 X10^6/uL (3.5-5.4); RED CELL DISTRIBUTION WIDTH 13.9 % (11.6-16.5); WHITE BLOOD COUNT 5.3 X10^3/uL (3.6-10.0)
[2018-11-04 22:24] LABS: HYPOCHROMASIA SLIGHT; PLATELET MORPHOLOGY COMMENT NORMAL (NORMAL)
[2018-11-04 22:36] LABS: BLOOD UREA NITROGEN 16 mg/dL (7-18); CARBON DIOXIDE 23.4 mmol/L (21-32); CHLORIDE 104 mmol/L (98-107); CREATININE 0.59 mg/dL (0.55-1.02); SODIUM 140 mmol/L (136-145); TROPONIN I < 0.02 ng/mL (0-1.5); eGFR NON BLACK RACES > 60 (>60)
[2018-11-04 22:40] LABS: ALANINE AMINOTRANSFERASE 19 Units/L (12-78); ALKALINE PHOSPHATASE 57 Units/L (46-116); ASPARTATE AMINO TRANSFERASE 12 Units/L (15-37); CKMB % 0.6 % (<4); CREATINE KINASE 177 Units/L (26-192); CREATINE KINASE MB < 1.0 ng/mL (0-4.0); MAGNESIUM 1.7 mg/dL (1.7-2.9); TOTAL PROTEIN 7.5 g/dL (6.4-8.2)
--- NOTE | 2018-11-04 23:47 | CT ---
CTA chest Indication: Generalized chest pain Technique: Helical CT images of the chest were obtained with IV contrast. Reformatted images in the coronal and sagittal planes and 3D MIP images were also generated for review. Comparison: 10/01/2018 Findings: Contrast bolus timing is adequate for detection of PTE. No pulmonary thromboembolus is identified. There is no pulmonary arterial dilatation or evidence of right heart strain. The heart is normal in size without pericardial effusion. The thoracic aorta and proximal great vessels are normal in contour and caliber. The central airways are patent. There is no mediastinal or bulky hilar lymphadenopathy. Previously seen subcentimeter subpleural nodules within the right lower lobe (axial image 56 and 60), left lower lobe (axial image 72) and right middle lobe axial image 67, series 5) are again noted and unchanged since prior exam. The lungs are otherwise clear without focal consolidation or new pulmonary nodule identified. There is no effusion or pneumothorax. Limited arterial phase images of the upper abdomen demonstrate no acute abnormality. No aggressive osseous lesions are identified. Impression: No PTE or acute chest process. Stable bilateral subcentimeter pulmonary nodules as above. Reported By:
[2018-11-05] MEDS ORDERED: LOVENOX INJ 80 MG SYR SC STA ×2 (00:21→09:59)
[2018-11-05] MEDS ORDERED: COUMADIN TAB 10 MG PO ONE (00:38)
[2018-11-05 01:15] LABS: CKMB % 0.6 % (<4); CREATINE KINASE 176 Units/L (26-192); CREATINE KINASE MB < 1.0 ng/mL (0-4.0); TROPONIN I < 0.02 ng/mL (0-1.5)
[2018-11-05] MEDS: LOVENOX INJ 80 MG SYR SC SCH ×2 (02:20→09:19)
[2018-11-05] MEDS ORDERED: RESTORIL CAP 15 MG PO PRN (02:22)
[2018-11-05] MEDS ORDERED: RESTORIL CAP 15 MG PO ONE (02:23)
[2018-11-05 02:40] VITALS: BMI 31.6
[2018-11-05 06:18] LABS: CHOL/HDL RATIO 4.6 (0.0-5.0)
[2018-11-05 07:46] LABS: CREATINE KINASE 161 Units/L (26-192); CREATINE KINASE MB < 1.0 ng/mL (0-4.0); TROPONIN I < 0.02 ng/mL (0-1.5)
[2018-11-05 07:57] VITALS: BP 144/73
[2018-11-05 08:40] LABS: CKMB % 0.6 % (<4)
--- NOTE | 2018-11-15 08:18 | DR.CARTERS ---
Short Stay Summary - Admission Date Date of Admission: 11/05/18 - Discharge Date Discharge Date: 11/05/18 - Admission Diagnoses (1) Chest pain, rule out acute myocardial infarction Status: Acute - Hospital Course Hospital Course: IS A 28 YEAR OLD PATIENT OF WHO PRESENTED TO THE ER WITH COMPLAINTS OF RIGHT SIDED CHEST PAIN AND XIPHOID PAIN FOR THE PAST THREE DAYS THAT HAS PROGRESSIVELY GOTTEN WORSE. SHE ALSO REPORTED SHORTNESS OF BREATH. SHE DESCRIBED PAIN SHARP AND HEAVY. SHE DENIED COUGH, FEVER, CHILLS, OR VOMITING. SHE HAS A HISTORY OF DVT FOR WHICH SHE TAKES COUMADIN. ON ARRIVAL, VITALS WERE 98.0-68-20-100%-159/94. LABS WERE OBTAINED. ABNORMAL LAB VALUES INCLUDE THE FOLLOWING: D-DIMER 428, CALCIUM 8.0, AST 12, LDL 131, HDL 39. A CHEST XRAY WAS OBTAINED AND REVEALED : NO ACUTE CARDIOPULMONARY ABNORMALITY. EKG OBTAINED AND REVEALED: SINUS RHYTHM WITH HR 60. CHEST CTA OBTAINED AND REVEALED: No PTE or acute chest process. Stable bilateral subcentimeter pulmonary nodules. SHE WAS ADMITTED FOR FURTHER EVALUATION AND TREATMENT OF CHEST PAIN, RULE OUT AMI. WE PLANNED TO OBTAIN SERIAL CARDIAC ENZYMES AND EKGS AND CONTINUE TO MONITOR. ON MORNING ROUNDS, PATIENT ALERT AND ORIENTED, LYING IN BED ON MORNING ROUNDS. SHE DENIED CHEST PAIN AND SHORTNESS OF BREATH AND REPORTED FEELING WELL. HER VITALS UPON ROUNDS WERE 98.3-74-18-99%-144/73. CARDIAC ENZYMES AND EKGS STABLE AND UNCHANGED. WE PLANNED FOR DISCHARGE. INSTRUCTIONS FOR MEDICATIONS AND FOLLOW UP DISCUSSED WITH PATIENT. SHE VERBALIZED UNDERSTANDING. SHE WAS INSTRUCTED TO FOLLOW UP WITH AND TO CONTINUE HER HOME MEDICATIONS. PATIENT DISCHARGED TO HOME WITH FAMILY IN STABLE CONDITION. - Discharge Medications Discharge Medications: Home Medication List warfarin [Coumadin] 10 mg PO QAM 11/05/18 [History] Prescriptions: - Discharge Plan Disposition: 01 HOME, SELF-CARE Condition: Stable - Follow up/Referrals Follow up/Referrals: Clayton ZHANG [STAFF PHYSICIAN] - 3 days - Instructions Additional Instructions: COUMADIN DIET. ACTIVITY TOLERATED. Forms: Patient Portal
== END 2018-11-05 11:45 | disposition home or self-care (01) ==
LOC: MED/SURG 21:27 → ER 21:27 → MED/SURG 11-05 01:00
PROVIDERS: ADMIT Internal Medicine; ATTEND Internal Medicine
DX: Z86.718 Personal history of other venous thrombosis and embolism; R91.1 Solitary pulmonary nodule; Z79.1 Long term (current) use of non-steroidal anti-inflammatories (NSAID); R79.1 Abnormal coagulation profile; R07.89 Other chest pain
CPT/HCPCS: 36415; 71010; 71045; 71275; 80053; 80061; 82550; 82553; 83735; 84484; 85025; 85378; 85610; 85730; 93005; 93010; 94760; 96365; 96372; 99284; A4216; A4222; G0378; J1650